=== PATIENT | female | born 1995 | race Caucasian/White ===

== ENCOUNTER 2024-04-11 20:19 | Emergency (ER) | payer BC, MEDICAID, SELFPAY ==
--- NOTE | ~2024-04-11 | CT_ITS ---
CLINICAL INDICATION: Nausea vomiting and diarrhea with abdominal pain COMPARISON: None. TECHNIQUE: Multiple contiguous axial images of the abdomen and pelvis were performed following the ad ministration of with 100 mL Omnipaque-350 intravenous contrast The dose-length product (DLP) was 1836.12 mGy-cm. Automated exposure control and iterative reconstruction technique were employed. FINDINGS/OBSERVATIONS: Visualized lower thorax: The bilateral lung bases are clear. The heart is of normal size, without pericardial effusion. Small hiatal hernia is present. Liver: The liver enhances homogeneously and is not enlarged measuring 18 cm in longitudinal dimension. Gallbladder and biliary system: The gallbladder is surgically absent. Pancreas: The pancreas enhances homogeneously without ductal dilatation. Spleen: The spleen enhances homogeneously and is not enlarged measuring 11 cm in longitudinal dimension. Kidneys: The bilateral kidneys enhance symmetrically without hydronephrosis or renal calculi. Adrenal glands: Unremarkable. Gastrointestinal tract: Multiple loops of nondilated fluid-filled small and large bowel, consistent w ith patient's history. Appendix: The air-filled appendix is of normal caliber (coronal series, images of the 53 through 69). Vasculature: Unremarkable. No aneurysmal dilatation or significant stenosis. Lymph nodes: No pathologically enlarged or morphologically suspicious lymph nodes within the retroperitoneum or at the root of the mesentery. Pelvic structures: The bladder is only minimally distended, and otherwise unremarkable. The uterus is anteverted and anteflexed, and otherwise unremarkable Body wall and musculoskeletal: Small fat-containing umbilical hernia. No significant degenerative disease within the lower thoracic or lumbosacral spine. IMPRESSION: No acute intra-abdominal pathology. Multiple loops of nondilated fluid-filled small bowel and large bowel, consistent with patient's hist ory. Normal appendix. Reviewed, dictated and finalized at location A. [facility] IMPRESSION: No acute intra-abdominal pathology. Multiple loops of nondilated fluid-filled small bowel and large bowel, consiste nt with patient's history. Normal appendix.
[2024-04-11 20:31] VITALS: BP 153/101; PULSE 108; RESP 18; TEMP 36.9; O2SAT 100
[2024-04-11 20:53] LABS: Basophils Percent Auto 0.2 % (0.2-1.2); Eosinophils Absolute Auto 0.2 K/mm3 (0-0.3); Eosinophils Percent Auto 1.6 % (0-4.4); Hematocrit 46.1 % (37.0-47.0); Hemoglobin 15.8 g/dL (12.0-15.0); Immature Granulocyte Absolute 0.05 K/mm3 (0.00-0.031); Immature Granulocyte Percent A 0.4 % (0-0.5); Lymphocytes Absolute Auto 0.53 K/mm3 (0.9-3.2); Lymphocytes Percent Auto 4.1 % (18.3-44.2); Mean Corpuscular HGB Conc 34.3 g/dl (32-36); Mean Corpuscular Volume 84.7 fl (80-100); Mean Platelet Volume 10.2 fl (7.4-10.4); Monocytes Absolute Auto 0.4 K/mm3 (0.1-0.6); Monocytes Percent Auto 2.8 % (2.6-8.5); Neutrophils Absolute Auto 11.6 K/mm3 (1.3-6.7); Neutrophils Percent Auto 90.9 % (45.5-73.1); Platelet Count Result 318 k/mm3 (150-375); Red Blood Count 5.44 M/mm3 (4.2-5.4); Red Cell Distribution Width 12.9 % (11.5-14.5); White Blood Count 12.8 K/mm3 (4.5-10.0)
[2024-04-11 21:05] LABS: Add Urine Microscopic? YES; Appearance Urine Cloudy (Clear); Bacteria Urine 1+ /hpf; Bilirubin Urine Negative (Negative); Blood Urine 3+ (Negative); Color Urine Yellow (Yellow); Glucose Urine UA Negative (Negative); Ketones Urine Trace mg/dL (Negative); Leukocyte Esterase Ur Trace LEU/UL (Negative); Nitrate Urine Negative (Negative); Non Pathogenic Casts 0-2; Protein Urine 1+ mg/dL (Negative); Specific Grav Ur 1.025 (1.001-1.035); Squamous Epithelial Cell Urine Few /hpf (Few); Urobilinogen Urine 0.2 mg/dL (<2.0)
[2024-04-11 21:05] LABS: Alanine Aminotransferase 24 U/L (6-35); Albumin Level 4.4 g/dL (3.5-5.1); Alkaline Phosphatase 74 U/L (38-126); Anion Gap 13 mmol/L (4-12); Aspartate Amino Transferase 23 U/L (14-36); Bilirubin,Total 0.9 mg/dL (0.2-1.3); Blood Urea Nitrogen 13 mg/dL (7-17); Calcium 8.6 mg/dL (8.4-10.2); Carbon Dioxide 24 mmol/L (22-30); Chloride 102 mmol/L (98-107); Estimated CRCL calculation 143 ml/min; Estimated Glomerular Filt Rate > 60; Glucose 106 mg/dL (65-110); Lipase 59 U/L (23-300); Magnesium 1.9 mg/dL (1.6-2.3); Potassium 4.2 mmol/L (3.4-5.0); Sodium 139 mmol/L (137-145)
[2024-04-11 21:20] LABS: BEDSIDEPREGUCG Negative (Negative)
[2024-04-11 21:25] LABS: SPREG INTERNAL CONTROL Positive; Serum Qual hCG Negative
[2024-04-11 21:30] LABS: Influenza A QL RT-PCR Negative (Negative); Influenza B QL RT-PCR Negative (Negative); RSV RNA, RT-PCR Negative (Negative); SARS-CoV-2 RNA PCR Negative (Negative)
[2024-04-11 21:59] VITALS: BP 133/82; PULSE 115; RESP 16; TEMP 36.5; O2SAT 97
--- NOTE | 2024-04-11 22:06 | ED.GENADULT ---
HPI - General Adult General Chief complaint: Abdominal Pain Stated complaint: nausea, vomiting, diarrhea abd pain Time Seen by Provider: 04/11/24 21:57 Source: patient Mode of arrival: ambulatory Limitations: no limitations History of Present Illness HPI narrative: This is a 28-year-old female who presents to the ED for chief complaint of N/V/D and abdominal pain this started this afternoon around 2:00 p.m.. Reports somewhere between 5-10 episodes of vomiting and a couple episodes of diarrhea. States that she is unable to keep anything down to the nausea. Reports intense abdominal pain across the entire abdomen. Described as a contraction or cramping. Reports surgical history of cholecystectomy. Related Data Allergies Allergy/AdvReac Type Severity Reaction Status Date / Time codeine Allergy Unknown Other Verified 04/11/24 20:21 amoxicillin AdvReac Mild Nausea Verified 04/11/24 20:21 Review of Systems Review of Systems: All systems as dictated in HPI Exam Narrative: GENERAL: Well-appearing, well-nourished, and in no acute distress. HEAD: Normocephalic, atraumatic. EYES: PERRLA and EOMI. ENT: Nares clear, no rhinorrhea or epistaxis. Mucous membranes moist. Oropharynx without tonsillar hypertrophy exudate or other lesions. NECK: Supple. No adenopathy or masses. CHEST: No respiratory distress. Clear to auscultation. No wheezes rales or rhonchi HEART: Regular rate and rhythm. No murmur heard. Normal peripheral pulses. ABDOMEN: Soft, nontender, nondistended, normal active bowel sounds. MSK: Normal range of motion. No edema. SKIN: Warm, dry, no rash. NEURO: Alert and oriented x4. No focal deficits. PSYCH: Normal mood and affect. Course Vital Signs Vital signs: Vital Signs Temperature 98.4 F 04/11/24 20:31 Pulse Rate 108 H 04/11/24 20:31 Respiratory Rate 18 04/11/24 20:31 Blood Pressure 153/101 H 04/11/24 20:31 Pulse Oximetry 100 04/11/24 20:31 Temperature 97.7 F 04/11/24 21:59 Pulse Rate 110 H 04/12/24 00:25 Respiratory Rate 18 04/12/24 00:25 Blood Pressure 163/9 H 04/12/24 00:25 Pulse Oximetry 97 04/12/24 00:25 Medical Decision Making MDM Narrative Medical decision making narrative: This is a 28-year-old female who presents to the ED for chief complaint of N/V/D. Vitals show mildly elevated heart rate and mildly elevated blood pressure. Exam is benign overall. No evidence of acute abdomen. Lab work shows mildly elevated white count of 12.8. She appears to be hemoconcentrated on lab work indicating dehydration. CMP unremarkable. Urinalysis shows trace leuks, 6-10 whites, culture is pending. Viral swabs negative. CT abdomen pelvis with IV contrast: IMPRESSION: No acute intra-abdominal pathology. Multiple loops of nondilated fluid-filled small bowel and large bowel, consistent with patient's history. Normal appendix. Presentation consistent with viral gastroenteritis. She did have improvement with fluids, Toradol, Zofran here. Patient will be discharged in stable condition. Supportive measures discussed and return precautions given. Patient is understanding and agreeable with plan for discharge with PCP follow-up. Vital Signs Vital Signs: Vital Signs Temperature 98.4 F 04/11/24 20:31 Pulse Rate 108 H 04/11/24 20:31 Respiratory Rate 18 04/11/24 20:31 Blood Pressure 153/101 H 04/11/24 20:31 Pulse Oximetry 100 04/11/24 20:31 Temperature 97.7 F 04/11/24 21:59 Pulse Rate 110 H 04/12/24 00:25 Respiratory Rate 18 04/12/24 00:25 Blood Pressure 163/9 H 04/12/24 00:25 Pulse Oximetry 97 04/12/24 00:25 Lab Data 04/11/24 20:44 04/11/24 20:44 Labs: Lab Results 04/11/24 04/11/24 04/11/24 Range/Units 20:44 20:53 21:18 WBC 12.8 H (4.5-10.0) K/mm3 RBC 5.44 H (4.2-5.4) M/mm3 Hgb 15.8 H (12.0-15.0) g/dL Hct 46.1 (37.0-47.0) % MCV 84.7 (80-100) fl MCH 29.0 (26-34) pg MCHC 34.3 (32-36) g/dl RDW 12.9 (11.5-14.5) % Plt Count 318 (150-375) k/mm3 MPV 10.2 (7.4-10.4) fl Immature Gran % (Auto) 0.4 (0-0.5) % Neut % (Auto) 90.9 H (45.5-73.1) % Lymph % (Auto) 4.1 L (18.3-44.2) % [place] % (Auto) 2.8 (2.6-8.5) % Eos % (Auto) 1.6 (0-4.4) % Baso % (Auto) 0.2 (0.2-1.2) % Lymph # (Auto) 0.53 L (0.9-3.2) K/mm3 [place] # (Auto) 0.4 (0.1-0.6) K/mm3 Eos # (Auto) 0.2 (0-0.3) K/mm3 Baso # (Auto) 0.0 (0.0-0.1) K/mm3 Abs Immat Gran (auto) 0.05 H (0.00-0.031) K/mm3 Absolute Neuts (auto) 11.6 H (1.3-6.7) K/mm3 Absolute Nucleated RBC 0.000 (0.0-0.012) K/mm3 Nucleated RBC % 0.0 (0.0-0.2) % Sodium 139 (137-145) mmol/L Potassium 4.2 (3.4-5.0) mmol/L Chloride 102 (98-107) mmol/L Carbon Dioxide 24 (22-30) mmol/L Anion Gap 13 H (4-12) mmol/L BUN 13 (7-17) mg/dL Creatinine 0.71 (0.7-1.0) mg/dL Estim Creat Clear Calc 143 ml/min Estimated GFR > 60 (59 - ) Glucose 106 (65-110) mg/dL Calcium 8.6 (8.4-10.2) mg/dL Magnesium 1.9 (1.6-2.3) mg/dL Total Bilirubin 0.9 (0.2-1.3) mg/dL AST 23 (14-36) U/L ALT 24 (6-35) U/L Alkaline Phosphatase 74 (38-126) U/L Total Protein 8.0 (6.3-8.2) g/dL Albumin 4.4 (3.5-5.1) g/dL Lipase 59 (23-300) U/L Serum HCG, Qual Negative Urine Color Yellow (Yellow) Urine Appearance Cloudy H (Clear) Urine pH 5.0 (5.0-9.0) Ur Specific [place] 1.025 (1.001-1.035) Urine Protein 1+ H (Negative) mg/dL Urine Glucose (UA) Negative (Negative) mg/dL Urine Ketones Trace H (Negative) mg/dL Ur Blood (Man) 3+ H (Negative) Urine Nitrate Negative (Negative) Urine Bilirubin Negative (Negative) Urine Urobilinogen 0.2 (<2.0) mg/dL Leukocyte Esterase Rfl Trace H (Negative) CLAY/UL Urine RBC 6-10 H (0-2) /hpf Urine WBC 6-10 H (0-3) /hpf Ur Squamous Epith Cells Few (Few) /hpf Urine Bacteria 1+ H /hpf Urine Casts 0-2 POC Urine HCG, Qual Negative (Negative) Influenza A (RT-PCR) Negative (Negative) Influenza B (RT-PCR) Negative (Negative) RSV (RT-PCR) Negative (Negative) SARS-CoV-2 RNA (RT-PCR) Negative (Negative) Discharge Plan Discharge Clinical Impression: Gastroenteritis, Abnormal finding on urinalysis Patient Disposition: Home, Self-Care Condition: Stable Instructions: Antibiotic Form Additional Instructions: Your exam and imaging today are reassuring overall. There is evidence of slight dehydration due to a viral gastroenteritis. Dim should self resolve over the next several days. Make sure that you are staying well hydrated. Use Zofran at home for nausea. If you have any new or worsening symptoms please return to the ER for further evaluation. Patient Language: Telugu Prescriptions: New ondansetron 4 mg tablet,disintegrating 4 mg PO Q8H PRN (Reason: nausea and vomiting) Qty: 10 0RF cephalexin 500 mg tablet 500 mg PO Q8H 7 Days Qty: 21 0RF Follow-up/Referrals: Anita,Koby Petersen MD [Primary Care Provider] - Time of Disposition: 00:07
[2024-04-11] MEDS: SODIUM CHLORIDE 0.9% IV 1,000 ML 999 ML IV CONT ×2 (22:24→23:45)
[2024-04-11] MEDS: KETOROLAC 15 MG/ML VIAL (*BKC) IV PUSH (23:45)
[2024-04-11] MEDS: ONDANSETRON INJ 4 MG/2 ML VIAL IV PUSH (23:45)
[2024-04-12 00:25] VITALS: BP 163/9; PULSE 110; RESP 18; O2SAT 97
== END 2024-04-12 00:25 | disposition home or self-care (01) ==
PROVIDERS: Emergency Medicine; Emergency Provider Physician Assistant; PCP Internal Medicine
DX: K52.9 Noninfective gastroenteritis and colitis, unspecified (principal); R82.998 Other abnormal findings in urine; Z20.822 Contact with and (suspected) exposure to COVID-19; Z90.49 Acquired absence of other specified parts of digestive tract
CPT/HCPCS: 36415; 74177; 80053; 81001; 81025; 83690; 83735; 84703; 85025; 87086; 87637; 96361; 96374; 96375; 99284; J1885; J2405; J7030; Q9967

== ENCOUNTER 2024-07-18 10:47 | Outpatient (CLI) | payer BC, MEDICAID, SELFPAY ==
--- NOTE | ~2024-07-18 | XR_ITS ---
EXAM: XR foot LT min 3V DATE: 07/18/2024 11:27 HISTORY: pain in lt foot s/p injury . COMPARISON: None available. FINDINGS: Normal mineralization. There is metatarsal base avulsion fracture, with 3 mm distraction a nd 2 mm lateral displacement, smooth, sclerotic margins as can be seen with chronic fracture. No acut e fracture or dislocation. No lytic or blastic lesion. Joint spaces are maintained. No erosion or per iosteal change. Soft tissues within normal limits. IMPRESSION: Chronic appearing, mildly distracted and displaced fifth metatarsal base avulsion fractur e. Reviewed, dictated and finalized at location K. IMPRESSION: Chronic appearing, mildly distracted and displaced fifth metatarsal base avulsion fracture.
--- NOTE | ~2024-07-18 | XR_ITS ---
EXAM: XR lumbar spine 2-3V DATE: 07/18/2024 11:26 HISTORY: LOW BACK PAIN . COMPARISON: None available. FINDINGS: 5 nonrib-bearing lumbar-type vertebral bodies. Pedicles intact. Normal vertebral body alig nment. Vertebral body heights preserved. Mild disc space narrowing at L2-3 through L4-5. Mild lower l umbar facet hypertrophy and sclerosis. No fracture or dislocation. IMPRESSION: Mild lower lumbar degenerative disc disease and facet arthropathy. Reviewed, dictated and finalized at location K.
--- OUTSIDE RECORDS SUMMARY | 2024-07-18 12:56 | XMS_ITS | Patient Health Record ---
Author Organization [facility] Address [address] [place] [address] Care Team Providers Care Jet Piercer Operator Name Role Phone Olga Lidia Wong Primary Care Provider [phone] Darío Nevarez Unavailable [phone] Allergies Allergen (clinical drug ingredient) Drug/Non Drug Allergy documented on EMR Reaction Allergy Type Onset Date Status codeine Codeine hives Drug Allergy Active Reason For Referral Reason PHQ-9 20; warm hand off for f/u per protocol. Client is not suicidal and is low risk at this point. Diagnosis 1 PMDD (premenstrual d ysphoric disorder) (F32.81) Diagnosis 2 Concentration defici t (R41.840) Referral Organization [facility] Referring Provider First Name Darío Referring Provider Last Name Roque Referring Provider Speciality Psychiatry Referred Provider Specialty Behavioral [facility] Clinical Notes Radha Castillo 08/11 09:53:36 AM >Attempt to contact Consumer. Unable to reach Consumer at this time.Pete Ryen G 08/18/2023 12:51:30 PM > Client was unable to be reached, left a voicemail., Divine Bennett 08/26/2023 02:01:00 PM >[facility] PW attempted to contact consumer regarding referral. VM left requesting a return call.Donald Paulean 08/28/2023 09:46:21 AM >Letter mailed to consumer.Donald Paulean 09/11/2023 11:40:33 AM >No response from consumer; case closed. Referral Priority Routine Reason Interested in therap y and would like information. Diagnosis 1 PMDD (premenstrual d ysphoric disorder) (F32.81) Diagnosis 2 Anxiety (F41.9) Referral Organization [facility] Referring Provider First Name Darío Referring Provider Last Name Roque Referring Provider Speciality Psychiatry Referred Provider Specialty Behavioral [facility] Clinical Notes Kanchan Cook 025 03:03:59 PM > CHN called client, no answer. CHN left a voicemail for client to call back to discuss referral., Kanchan Cook 05/13/2024 10:16:19 AM > CHN called client and was sent to voicemail. CHN left message for client to call back to discuss referral., Joyce Kanchan 05/16/2024 02:39:16 PM > CHN called client and was sent to voicemail. CHN left a voicemail for client to call and discuss referral., Kanchan Cook 05/17/2024 01:24:43 PM > CHN sent client a letter with information to call CHN if they wanted to discuss referral. Referral Priority Routine Medications Medication SIG (Take, Route, Frequency, Duration) Notes Start Date End Date Status Atomoxetine HCl 40 MG 1 capsule in the morning Orally Once a day for 30 days 10/05/2023 Not-Taking Norethindrone Acetate 5 MG 1 tablet Orally Once a day Active Pantoprazole Sodium 40 MG 1 tablet Orally Once a day Active Dicyclomine HCl 10 MG 1 capsule Orally prn Active LORazepam 1 MG 1 tablet Orally Once a day as needed for panic attacks/extreme anxiety for 30 days Please remind client to schedule f/u. 07/15/2024 Active Gabapentin 100 MG 1 - 2 capsules Orally Once a day for 30 days Active Social History Tobacco Use: Social History Observation Description Date Details (start date - stop date) Never Smoker NA - NA Tobacco Control (Standard) Question Answer Notes Additional Findings: Tobacco non-user Ne neo chewed tobacco,Never used moist powdered tobacco Tobacco use: Nonsmoker Problems Problem Type SNOMED Code ICD Code Onset Dates Problem Status W/U Status Risk Notes Problem Anxiety (65865010) Anxiety (F41.9) Active confirmed Problem Poor concentration (finding) (23276244) Concentration deficit (R41.840) Active confirmed Problem Premenstrual tension syndrome (34831238) PMDD (premenstrual dysphoric disorder) (F32.81) Active confirmed Problem Restless legs (52438628) Restless leg (G25.81) Active confirmed Encounters Encounter Location Date Provider Diagnosis [address] [address] 2023 Darío Nevarez PMDD (premenstrual dysphoric disorder) F32.81 and Concentration deficit R41.[address] [address] 09/07/2023 Darío Nevarez PMDD (premenstrual dysphoric disorder) F32.81 and Concentration deficit R41.[address] [address] 10/05/2023 Darío Nevarez PMDD (premenstrual dysphoric disorder) F32.81 ; Concentration deficit R41.840 and Restless leg G25.[address] [address] 05/09/2024 Darío Nevarez PMDD (premenstrual dysphoric disorder) F32.81 ; Anxiety F41.9 ; Concentration deficit R41.840 and Restless leg G25.[address] [address] 08/03/2023 Olga Lidia Wong [address] [address] 2023 Darío Nevarez PMDD (premenstrual dysphoric disorder) F32.[address] [address] 09/21/2023 Darío Nevarez Assessments Encounter Date Diagnosis (ICD Code) Assessment Notes Treatment Notes Treatment Clinical Notes Section Notes 2023 Concentration deficit (ICD-10 - R41.840) Client assessed carefully for ADHD and bipolar disorder after requesting ADHD screening due to symptoms of concentration deficits. While screening did reveal current topics of deficit, falls short of ADHD diagnosis. Historical information also appears to be incongruent with ADHD dx and while this can often be faulty due to memory client is not far removed from school years and is good historian. Client has 3 children all under age of 4, one is autistic with high needs, and client appears overwhelmed. Is having increased symptoms around one week prior to menstration (increased irritability, increased forgetfulness, lack of goal accomplishment). Discussed PMDD as possible dx and starting treatment in this aspect with fluoxetine. She is also starting progesterone soon per her OBGYN. Client is agreeable to this and use of hydroxyzine for tx of anxiety/insomnia prn usage. If this tx not helpful would consider Strattera or Qelbree for tx of concentration deficit as secondary option. 2023 PMDD (premenstrual dysphoric disorder) (ICD-10 - F32.81) Client assessed carefully for ADHD and bipolar disorder after requesting ADHD screening due to symptoms of concentration deficits. While screening did reveal current topics of deficit, falls short of ADHD diagnosis. Historical information also appears to be incongruent with ADHD dx and while this can often be faulty due to memory client is not far removed from school years and is good historian. Client has 3 children all under age of 4, one is autistic with high needs, and client appears overwhelmed. Is having increased symptoms around one week prior to menstration (increased irritability, increased forgetfulness, lack of goal accomplishment). Discussed PMDD as possible dx and starting treatment in this aspect with fluoxetine. She is also starting progesterone soon per her OBGYN. Client is agreeable to this and use of hydroxyzine for tx of anxiety/insomnia prn usage. If this tx not helpful would consider Strattera or Qelbree for tx of concentration deficit as secondary option. 2023 PMDD (premenstrual dysphoric disorder) (ICD-10 - F32.81) 09/07/2023 PMDD (premenstrual dysphoric disorder) (ICD-10 - F32.81) Client with much improvement in symptoms with fluoxetine though not with hydroxyzine. Hydroxyzine discontinued and fluoxetine continued at same dosage. Client c/o consistent fatigue despite good and adequate sleep and resolved depression. Hx of anemia during and family hx of anemia (mother has). Heavy periods (this is why progesterone was ordered). Discussed starting MVI with iron. Not currently taking MVI. Also discussed client to discuss this fatigue with her OBGYN at her next apt given her heavy periods. If continues would consider ordering CBC in near future. Client is agreeable to this treatment plan. 10/05/2023 Concentration deficit (ICD-10 - R41.840) Client requests medication for her concentration and anxiety. Discussed different treatment options. Client open to trial of Strattera and gabapentin. Sent into pharmacy. 10/05/2023 PMDD (premenstrual dysphoric disorder) (ICD-10 - F32.81) Client requests medication for her concentration and anxiety. Discussed different treatment options. Client open to trial of Strattera and gabapentin. Sent into pharmacy. 05/09/2024 Anxiety (ICD-10 - F41.9) Client's depression resolved with hormonal tx from OBGYN. C/o anxiety, not every day, but to point of hands shaking when occurring. States has used lorazepam in past with success. Discussed the dangers of use of benzodiazepines senior living for anxiety control and that if client finds current amount not sufficient to help with anxiety a longer acting, non benzo medication will need to be used instead. She is agreeable to this plan. She is also interested in therapy and how to engage with therapy at [facility] discussed and referral sent. 05/09/2024 PMDD (premenstrual dysphoric disorder) (ICD-10 - F32.81) Client's depression resolved with hormonal tx from OBGYN. C/o anxiety, not every day, but to point of hands shaking when occurring. [facility] has used lorazepam in past with success. Discussed the dangers of use of benzodiazepines oysterman for anxiety control and that if client finds current amount not sufficient to help with anxiety a longer acting, non benzo medication will need to be used instead. She is agreeable to this plan. She is also interested in therapy and how to engage with therapy at [facility] discussed and referral sent. 05/09/2024 Concentration deficit (ICD-10 - R41.840) Client's depression resolved with hormonal tx from OBGYN. C/o anxiety, not every day, but to point of hands shaking when occurring. [facility] has used lorazepam in past with success. Discussed the dangers of use of benzodiazepines senior living for anxiety control and that if client finds current amount not sufficient to help with anxiety a longer acting, non benzo medication will need to be used instead. She is agreeable to this plan. She is also interested in therapy and how to engage with therapy at [facility] discussed and referral sent. 10/05/2023 Restless leg (ICD-10 - G25.81) Client requests medication for her concentration and anxiety. Discussed different treatment options. Client open to trial of Strattera and gabapentin. Sent into pharmacy. 09/07/2023 Concentration deficit (ICD-10 - R41.840) Client with much improvement in symptoms with fluoxetine though not with hydroxyzine. Hydroxyzine discontinued and fluoxetine continued at same dosage. Client c/o consistent fatigue despite good and adequate sleep and resolved depression. Hx of anemia during and family hx of anemia (mother has). Heavy periods (this is why progesterone was ordered). Discussed starting MVI with iron. Not currently taking MVI. Also discussed client to discuss this fatigue with her OBGYN at her next apt given her heavy periods. If continues would consider ordering CBC in near future. Client is agreeable to this treatment plan. 05/09/2024 Restless leg (ICD-10 - G25.81) Client's depression resolved with hormonal tx from OBGYN. C/o anxiety, not every day, but to point of hands shaking when occurring. States has used lorazepam in past with success. Discussed the dangers of use of benzodiazepines oysterman for anxiety control and that if client finds current amount not sufficient to help with anxiety a longer acting, non benzo medication will need to be used instead. She is agreeable to this plan. She is also interested in therapy and how to engage with therapy at [facility] discussed and referral sent. 2023 Other Discussed sleep hygiene and caffeine intake with encouragement to limit electronic devices an hour before bed and to limit caffeine after 3:00pm. Exercise benefits for mood and health discussed. Psychoeducation regarding psychiatric illness provided. Client was educated about risks and benefits of medication, alternatives to medication, off label uses of medication, suicidal ideation with SSRIs, self-administrati on and compliance with medication along with how to safely store medication. Verbal informed consent obtained. Client agrees to return sooner if symptoms worsen or if suicidal or homicidal ideations occur. Client has the phone number to the 24-hour crisis line at [facility]. Questions addressed. Client verbalized understanding of all information and is agreeable to treatment plan. Client assessed carefully for ADHD and bipolar disorder after requesting ADHD screening due to symptoms of concentration deficits. While screening did reveal current topics of deficit, falls short of ADHD diagnosis. Historical information also appears to be incongruent with ADHD dx and while this can often be faulty due to memory client is not far removed from school years and is good historian. Client has 3 children all under age of 4, one is autistic with high needs, and client appears overwhelmed. Is having increased symptoms around one week prior to menstration (increased irritability, increased forgetfulness, lack of goal accomplishment). Discussed PMDD as possible dx and starting treatment in this aspect with fluoxetine. She is also starting progesterone soon per her OBGYN. Client is agreeable to this and use of hydroxyzine for tx of anxiety/insomnia prn usage. If this tx not helpful would consider Strattera or Qelbree for tx of concentration deficit as secondary option. 09/07/2023 Other Discussed sleep hygiene and caffeine intake with encouragement to limit electronic devices an hour before bed and to limit caffeine after 3:00pm. Exercise benefits for mood and health discussed. Psychoeducation regarding psychiatric illness provided. Client was educated about risks and benefits of medication, alternatives to medication, off label uses of medication, suicidal ideation with SSRIs, self-administrati on and compliance with medication along with how to safely store medication. Verbal informed consent obtained. Client agrees to return sooner if symptoms worsen or if suicidal or homicidal ideations occur. Client has the phone number to the 24-hour crisis line at [facility]. Questions addressed. Client verbalized understanding of all information and is agreeable to treatment plan. Client with much improvement in symptoms with fluoxetine though not with hydroxyzine. Hydroxyzine discontinued and fluoxetine continued at same dosage. Client c/o consistent fatigue despite good and adequate sleep and resolved depression. Hx of anemia during and family hx of anemia (mother has). Heavy periods (this is why progesterone was ordered). Discussed starting MVI with iron. Not currently taking MVI. Also discussed client to discuss this fatigue with her OBGYN at her next apt given her heavy periods. If continues would consider ordering CBC in near future. Client is agreeable to this treatment plan. 10/05/2023 Other Discussed sleep hygiene and caffeine intake with encouragement to limit electronic devices an hour before bed and to limit caffeine after 3:00pm. Exercise benefits for mood and health discussed. Psychoeducation regarding psychiatric illness provided. Client was educated about risks and benefits of medication, alternatives to medication, off label uses of medication, suicidal ideation with SSRIs, self-administrati on and compliance with medication along with how to safely store medication. Verbal informed consent obtained. Client agrees to return sooner if symptoms worsen or if suicidal or homicidal ideations occur. Client has the phone number to the 24-hour crisis line at [facility]. Questions addressed. Client verbalized understanding of all information and is agreeable to treatment plan. Client requests medication for her concentration and anxiety. Discussed different treatment options. Client open to trial of Strattera and gabapentin. Sent into pharmacy. 05/09/2024 [place]. Discussed sleep hygiene and caffeine intake with encouragement to limit electronic devices an hour before bed and to limit caffeine after 3:00pm. Exercise benefits for mood and health discussed. Psychoeducation regarding psychiatric illness provided. Client was educated about risks and benefits of medication, alternatives to medication, off label uses of medication, suicidal ideation with SSRIs, self-administrati on and compliance with medication along with how to safely store medication. Verbal informed consent obtained. Client agrees to return sooner if symptoms worsen or if suicidal or homicidal ideations occur. Client has the phone number to the 24-hour crisis line at [facility]. Questions addressed. Client verbalized understanding of all information and is agreeable to treatment plan. Client's depression resolved with hormonal tx from OBGYN. C/o anxiety, not every day, but to point of hands shaking when occurring. States has used lorazepam in past with success. Discussed the dangers of use of benzodiazepines oysterman for anxiety control and that if client finds current amount not sufficient to help with anxiety a longer acting, non benzo medication will need to be used instead. She is agreeable to this plan. She is also interested in therapy and how to engage with therapy at [facility] discussed and referral sent. Plan Of Treatment No Information Insurance Providers Payer Name Payer Address Payer Phone Subscriber Number Group Number Insured Name Patient Relationship to Insured Coverage Start Date Coverage End Date [facility] [address] [place] [address] [id number] Dulce Chilel Self - patient is the insured 4 Medical (General) History Medical History History ICD Code depression anxiety Surgical History Surgery Date(Month/Year) section 2019 cholecystectomy 2021 tubal ligation 2022 Hospitalization History Reason Date(Month/Year) childbirth surgery
--- OUTSIDE RECORDS SUMMARY | 2024-07-18 12:56 | XMS_ITS | Referral Summary ---
Author Organization [facility] Address [address] [place] [address] Care Team Providers Care Bench Assembly Inspector Name Role Phone Koby Howard MD Primary Care Provider [phone] Allergies Active Allergy Reactions Criticality Noted Date Comments Codeine Hives Medium 05/19/2018 Medications dicyclomine (BENTYL) 10 mg capsule TAKE 1 CAPSULE BY MOUTH THREE TIMES DAILY NEEDED 07/27/[address] (PROTONIX) 40 mg EC tablet Take 1 tablet (40 mg total) by mouth as needed 07/28/2023 Active norethindrone (AYGESTIN) 5 mg tablet Take 1 tablet (5 mg total) by mouth daily 30 tablet 11 08/10/2023 Active Active Problems Problem Noted Date Diagnosed Date Abnormal uterine bleeding 08/10/2023 PMDD (premenstrual dysphoric disorder) 4 Major depressive disorder, r ecurrent episode, in full remission 01/21/2022 Morbid obesity 01/16/2022 Acute nonintractable headache Resolved Problems Problem Noted Date Diagnosed Date Resolved Date Encounter for female sterilization procedure 3 08/10/2023 Encounter for induction of labor 12/15/2022 08/10/2023 Overview (12/15/2022): Dulce Gisela Chilel is a 27 y.o. female at 38w4d who is dated by L=1 and is being admitted for an induction of labor secondary to chronic hypertension Admit to L&D: Consents signed and placed in chart. Labs: CBC and T&S pending. Induction of labor with chepe whelan . FWB: Continuous monitoring. tracing category II, reassured by moderate variability, +accels . ID: 3rd trimester HIV (>28 wga) negative on 12/01. GBS negative on 12/01 . RPR on admission: pending. Membrane Status: intact. Indications for UDS: none. Verbal consent obtained for UDS: Not indicated. MOF: Plans to formula feed. Urine drug screen not indicated. Patient informed of results: N/A. MOC: Desires interval tubal. Will discuss bridge. Pain management: Desires epidural. Post DVT prophylaxis: The patient has the following MAJOR risk factors BMI >/= 40 and the following MINOR risk factors parity >/=3. enoxaparin 40 mg daily will be ordered for VTE prophylaxis . #Hx of CS x1: For arrest of dilation. Successful in G2. #Anxiety/depression: On zoloft. For SW c/s PP. #LGA: EFW 94% with AC <99%. For shoulder dystocia counseling on admission. #Obesity: BMI 53 #cHTN: On no meds. BP MR on admission. UPC pending. Hx preE in G1. care following vaginal delivery 12/15/2022 08/10/2023 Overview (12/17/2022): # ID: Afebrile. No signs/symptoms of infection. # Heme: EBL 250 mL. No symptoms acute blood loss anemia. # CV/Pulm: Chronic hypertension - Blood pressures well controlled on no meds. Asymptomatic, denies PUENTE/RUQ pain/vision changes. CBC/CMP WNL, UPC 0.097. Enrolled in home BP monitoring. # GI/: Tolerating PO. Voiding spontaneously. # Pain: Controlled with above regimen. #Anxiety and Depression: on sertraline 100mg, continued on admission. Pt reports that mood has been stable on current dose. Social work consult completed. #Hypothyroidism: on no meds pre-. 06/2022 TSH 0.93. For TSH at PP visit. # MOC: Desires interval BTL, consents signed 10/20/2022. Declines bridge interval. # MOF: Formula feeding. Urine drug screen not indicated. Patient informed of results: N/A. # Post DVT prophylaxis: The patient has the following MAJOR risk factors BMI >/= 40 and the following MINOR risk factors parity >/=3. enoxaparin 40 mg BID ordered for VTE prophylaxis. # Disposition: Follow up to be scheduled with primary OB. To be tasked for interval BTL. Desires discharge home today. Supervision of other normal , antepartum 05/19/2022 08/10/2023 Overview (12/08/2022): -anxiety/depression-zoloft -cHTN, no meds -38-39wk IOL -C/S x1 IN G1, successful G2 -BMI>50, see problem list below -serial growth US @ 28wks -weekly NSTs @ 34wks -LGA 95% @ 32wks -normal pap at NOB -needs rpr with 36wk labs -desires tubal, papers signed 10/20 and scanned into media--for interval tubal unless C/S -IOL sched 12/15/22 @ 0830, pt aware [x] Initial BMI: 53.21 [x] Labs: Labs: Lab Results Component Value Date ABORH O Positive 06/23/2022 IDCOOMB Negative 06/23/2022 [id number] Nonreactive 06/23/2022 LABRPR Nonreactive 06/23/2022 RUBELIGG Reactive 05/02/2020 HEPBSAG Nonreactive 06/23/2022 GBS neg 10/27/2019 [x] Genetic Screening: Desires flk and negative carrier screening-->could not do flk, nml cfdna completed [x] Baby ASA: yes @ 12wks [x] 1hr GCT at 24-28wks: nml, 102 [x] Tdap (27-36wks):11/04/2022 ck [x] Flu Shot:declines 12/08/22 [x] COVID vaccine: declines [] Rhogam (if Rh neg): n/a O+ [x] GBS at 36 wks: negative [x] : FORMULA FEEDING [x] control method: ppBTL [x] 39 weeks discussion of IOL vs. Expectant management: 38wk IOL [x] Mode of delivery: anticipate [] For C/S bottle of CHG 4% and hand out provided @ 36wks Girl, formula feeding, [facility] Teaching: [x] 1st visit [x] 28-30 week [x] 36 week Initial BMI >50 (gestational weight goal <15lbs) 1st visit: [] Early HgbA1c and TSH [] Order specialized anatomy for 20-22wks [] 1mg folic acid and ASA @ 12wks [] JAYMIE eval (referral if indicated) [] Nutritional Consult Referral ([facility]) [] Discuss risks and limitations of cfDNA 3rd trimester/delivery: [] 28wk glucola [] Anesthesia Consult early 3rd tri [] Serial growth US (q4wks) @ 28wks [] Weekly NSTs @ 34wks [] 39 wk delivery recommended [] 3g Ancef @ delivery [] Discuss PP LMWH and Consideration of NPT wound dressing if : [] Nutrition/exercise counseling (dot phrase ACOGHEALTHYEATING and dot phrase ACOGEXERCISEAFTERPREGNANCY) Supervision of other normal , antepartum 03/29/2020 05/19/2022 Overview (11/12/2020): -Prior ltcs 10/2019 for AOD and LGA - early one hour 117 Unsure of delivery preferences wants to wait for growth US results--growth 11/05: 88% with AC at 98% -CHTN- pre-eclampsia in 2019 ; baseline labs completed 05/22 - Hx of anxiety and depression- on zoloft increased to 100mg daily 05/30; [facility] referral in -[place] only -[place] Serial growths ordered, last 10/17: 91%-->growth 11/05: 88% with AC at 98% -Hx of headaches -mild anemia for daily feso4 -COVID+ 05/22/2020 -TOLAC sched 11/22/2020 @ 2200, pt aware , covid testing (pt will be 38.6, not starting IOL until 0000) [x] Labs: Labs: Lab Results Component Value Date ABORH O Positive 05/02/2020 IDCOOMB Negative 05/02/2020 [id number] Nonreactive 05/02/2020 LABRPR Nonreactive 05/02/2020 RUBELIGG Reactive 05/02/2020 HEPBSAG Nonreactive 05/02/2020 GBS neg 10/27/2019 [x] Genetic Screening: nml flk [x] Baby ASA: yes @ 12wks [x] 1hr GCT at 24-28wks: nml, 112 [x] Tdap (27-36wks):10/02/20 AH [] Flu Shot: declined 04/23/20 [] Rhogam (if Rh neg): n/a O+ [x] GBS at 36 wks: negative [x] : FORMULA feeding [x] control method: OCPs [x] 39 weeks discussion of IOL vs. Expectant management: 39wk IOL [x] Mode of delivery: anticipate [] For C/S bottle of CHG 4% and hand out provided @ 36wks Girl, formula feeding, [facility] peds Teaching: [x] 1st visit [x] 28-30 week [x] 36 week care following delivery 11/15/2019 03/29/2020 Overview (11/17/2019): # ID: Afebrile. No signs/symptoms of infection. #COVID-19: Preadmission testing negative # Heme: EBL 800 mL. No symptoms acute blood loss anemia. # CV/Pulm: Pre-eclampsia with severe features - s/p 24 hours magnesium sulfate. Blood pressures normotensive to mild range on no meds. Will consider ordering [id number] if continued mild range BPs today. CBC/CMP WNL, UPC 0.1. Consented for Remote BP Monitoring # GI/: Tolerating PO. Voiding spontaneously. # Depression: continue home zoloft # Pain: Controlled with above regimen. # Post DVT prophylaxis: The patient has the following MAJOR risk factors BMI >/= 40 and the following MINOR risk factors delivery and preeclampsia. enoxaparin 40 mg BID ordered for VTE prophylaxis. # MOC: COCs at 6 week visit # MOF: Formula feeding # Disposition: Continue routine postoperative care. Plan to remove wound vac on day of discharge. Normal labor 11/13/2019 11/19/2020 Overview (11/13/2019): 1. Induction of labor for unresolved PUENTE: Admit to L&D. Consents signed and placed in chart. Send CBC/T&S. Induction of labor with miso & Cook Catheter. 2. FWB: Continuous monitoring. Reactive NST 3. ID: HIV Negative, 3rd trimester sent today. GBS negative. Membrane Status: intact. 4. Indications for UDS: none 5. MOF: Plans to formula feed. 6. MOC: Plans to use COCs for contraception. 7. Pain management: Desires epidural when in pain. 8. Post DVT prophylaxis: The patient has the following MAJOR risk factors BMI >/= 40 and the following MINOR risk factors preeclampsia. SCDs will be ordered for VTE prophylaxis . 9. COVID Test Status: Rapid test sent on admission 10. LGA: 99th% on 10/26 11. Anxiety/Depression: on Zoloft 12. Unresolved PUENTE/Atypical PreE: plan for Mag Sulfate during labor Supervision of other normal , antepartum 04/01/2019 03/29/2020 Overview (11/10/2019): -Depression, anxiety (stopped wellbutrin and lorazepam w + UPT); On zoloft and requesting to increase to 50mg -CHTN- serial growth US 3rd trimester -LGA - 99% -Pt not interested in classes or . States that knowing about these things increases her anxiety. Would rather experience them as they come and desires to return to pre-preg anxiety meds OSWALDO post-delivery. -Needs HIV on labor -IOL 11/20/19 @ 1999, pt aware, covid testing ordered [x] Labs: 1st trimester completed [x] Genetic Screening: FLK [x] Baby ASA:n/a [x] 1hr GCT at 24-28wks: 145; 3hr 94, 131, 110, 83 [x] Tdap (27-36wks):09/28/19 JCook [x] Flu Shot: Declined [] Rhogam (if Rh neg): n/a, O+ [] GBS at 36 wks: Negative [x] : no plans to formula feed [x] control method:list provided [x] 39 weeks discussion of IOL vs. Expectant management: [x] Mode of delivery: vd BOY, formula feed : NEED PED Normal labor 05/26/2022 Overview (11/19/2020): 1. TOLAC: Admit to L&D. Consents signed and placed in chart. Send CBC/T&S. Expectant management of labor. 2. FWB: Continuous monitoring. Reactive NST 3. ID: HIV negative. GBS negative. Membrane Status: intact. 4. Indications for UDS: none. Verbal consent obtained for UDS: Not indicated 5. cHTN: History of cHTN w superimposed preeclampsia in G1. Baseline CBC/CMP wnl. Normotensive on admit, plan for repeat CBC/CMP on admit. 6. Anxiety/depression: continue Zoloft 7. MO: BMI 54 8. Anemia: CBC on admit 9. COVID recovered: positive on 05/22/20 10. MOF: Plans to breastfeed. 11. MOC: Plans to use OCPs for contraception. 12. Pain management: Desires epidural now. 13. Post DVT prophylaxis: The patient has the following MAJOR risk factors BMI >/= 40 and the following MINOR risk factors none. enoxaparin 40 mg BID will be ordered for VTE prophylaxis . 14. COVID Vaccine Status: Not assessed 15. COVID Test Status: Test sent on admission care following vaginal delivery 05/26/2022 Overview (11/22/2020): # ID: Afebrile. No signs/symptoms of infection. #COVID-19: COVID recovered (tested positive 05/22/20), admission testing negative. # Heme: EBL 500 mL. No symptoms acute blood loss anemia. #Iron deficiency anemia: Admit Hgb 11.5, patient can continue PO iron if desired. # CV/Pulm: Chronic hypertension - Blood pressures well controlled on no meds. Asymptomatic, denies PUENTE/RUQ pain/vision changes. Baseline and admit CBC/CMP wnl, 24 hr UP 135. Normotensive over the last 24 hrs. Declines home BP monitoring. #History of chronic HTN w/ superimposed preeclampsia in G1 # GI/: Tolerating PO. Voiding spontaneously. # Anxiety/depression: On Zoloft # Morbid obesity: BMI 54.58 # Pain: Controlled with above regimen. # Post DVT prophylaxis: The patient has the following MAJOR risk factors BMI >/= 40 and the following MINOR risk factors none. enoxaparin 40 mg daily ordered for VTE prophylaxis. # MOC: Condoms # MOF: Formula feeding # COVID Vaccination Status: Not previously received: I decline to share my reason for not getting the vaccine # Disposition: Follow up [facility]. Discharge home today. Immunizations Immunization Administration Dates Next Due DTaP 08/02/1998,1997,1997 Hep A, Pediatric 02/12/2010 Hep B / HiB 08/02/1998 Hep B, Adolescent or Pediatric 1997 HiB 1997,1997 IPV 08/02/1998,1997,1997 MMR 12/17/2022(Deferred: No longer n eeded) Meningococcal MCV4P (Menactra) 12/07/2014 Tdap 11/04/2022,10/02/2020,09/28/2019 Varicella 12/17/2022(Deferred: No longer n eeded) Social History Tobacco Use Types Packs/Day Years Used Date Smoking Tobacco: Never Smokeless Tobacco: Never Tobacco Cessation:Counseling Given: Not Answered Alcohol Use Standard Drinks/Week Comments No 0 (1 standard drink = 0.6 oz pur e alcohol) Social Connection and Isolat ion Panel [NHANES] Answer Date Recorded In a typical week, how many times do you talk on the phone with family, friends, or neighbors? More than three times a week 12/16/2022 How often do you get togethe r with friends or relatives? Three times a week 12/16/2022 How often do you attend chur ch or judaism services? Never 12/16/2022 Do you belong to any clubs o r organizations such as shinto groups, unions, fraternal or athletic groups, or school groups? No 12/16/2022 How often do you attend meet ings of the clubs or organizations you belong to? Never 12/16/2022 Are you , , di vorced, , never , or living with a partner? Living with partner 12/16/2022 AUDIT-C Answer Date Recorded Q1: How often do you have a drink containing alcohol? Never 02/04/2023 Q2: How many drinks containi ng alcohol do you have on a typical day when you are drinking? Patient does not drink 3 Q3: How often do you have si x or more drinks on one occasion? Never 02/04/2023 Overall Financial Resource Strain (CARDIA) Answe r Date Recorded How hard is it for you to pa y for the very basics like food, housing, medical care, and heating? Not hard at all 12/16/2022 Exercise Vital Sign Answer Date Recorde d On average, how many days pe r week do you engage in moderate to strenuous exercise (like a brisk walk)? 3 days 09/08/2019 On average, how many minutes do you engage in exercise at this level? 40 min 09/08/2019 Hunger Vital Sign Answer Date Recorded Within the past 12 months, y ou worried that your food would run out before you got the money to buy more. Never true 12/17/19 23 Within the past 12 months, t he food you bought just didn't last and you didn't have money to get more. Never true 12/16/2022 PRAPARE - Transportation Answer Date Re corded In the past 12 months, has l ack of transportation kept you from medical appointments or from getting medications? No 11/22 In the past 12 months, has l ack of transportation kept you from meetings, work, or from getting things needed for daily living? No 12/16/2022 Housing Stability Vital Sign Answer Anup e Recorded In the last 12 months, was t here a time when you were not able to pay the mortgage or rent on time? No 12/16/2022 In the last 12 months, how many places have you lived? 1 12/16/2022 In the last 12 months, was t here a time when you did not have a steady place to sleep or slept in a senior care (including now)? No 12/16/2022 [place] Depression Scale Answer Date Recorded [place] Depression Scale Total 8 01/07/2023 The thought of harming myself has occurred to me . Never 01/07/2023 Personal Safety Answer Date Recorded Have you ever been in or are you currently in a harmful physical or emotional relationship or is someone making you feel afraid or unsafe? Denies 02/04/2023 Comments No Sex and Gender Information Value Date Recorded Sex Assigned at Not on file Legal Sex Female 1:45 PM CERTIFIED ATHLETIC TRAINER Gender Identity Not on file Sexual Orientation Not on file Occupation Industry Job Start Date Job End Date Self employed Not on file Not on file Not on file Last Filed Vital Signs Vital Sign Reading Time Taken Comments Blood Pressure 107/75 08/10/2023 8:03 AM CDT Pulse 68 02/04/2023 8:30 PM CERTIFIED ATHLETIC TRAINER Temperature 36.3 C (97.3 F) 02/04/2023 8:31 PM CERTIFIED ATHLETIC TRAINER Respiratory Rate 18 02/04/2023 8:30 PM CERTIFIED ATHLETIC TRAINER Oxygen Saturation 100% 02/04/2023 8:30 PM CERTIFIED ATHLETIC TRAINER Inhaled Oxygen Concentration - - Weight 139.2 kg (306 lb 12.8 oz) 08/10/2023 8:03 AM CDT Height 162.6 cm (5' 4 ) 08/10/2023 8:03 AM CDT Body Mass Index 52.66 08/10/2023 8:03 AM CDT Plan of Treatment Not on file Procedures Procedure Name Priority Date/Time Associated Diagnosis Comments HEPATITIS C ANTIBODY Routine 06/23/2022 3:34 PM CDT Supervision of other normal , antepartum PAP WITH REFLEX TO HIGH RISK HPV Routine 05/26/2022 3:11 PM CERTIFIED ATHLETIC TRAINER Supervision of other normal , antepartum from Last 3 Months or Most Recently Relevant to Health Maintenance Results * Hepatitis C antibody (06/23/2022 3:34 PM CDT) Hep C Ab Nonreactive Nonreactive [facility] Comment:Antibodies to HCV no t detected. Does NOT exclude the possibility of recent exposure to HCV. Current interpretive data was last revised on 21 Blood 06/23/2022 3:34 PM CDT 06/23/2022 4:44 PM CDT us Светлана Hogan MD LAB MICROBIOLO GY - GENERAL ORDERABLES Final Result Performing Organization Address City/[facility] Co de Phone Number [facility] Department [place] [address] * Pap with reflex to High Risk HPV (05/26/2022 3:11 PM CERTIFIED ATHLETIC TRAINER) CLINICAL INFORMATION: NO ABNL [facility] LMP EARLY Ques t Scaled [facility] Previous Pap EARLY PARGNANCY Q uest Scaled [facility] Prev. Bx NONE GIVEN [facility] Scaled [facility] SOURCE: Cervix, Endocervix [facility] Pap, specimen adequacy Satisfactory for evaluation. Endocervical/galvez sformation zone component present. [facility] Scaled [facility] HPV interp Negative for intraepithelial lesion or malignancy. [facility] Scaled [facility] COMMENTS This Pap test has been evaluated with computer assisted technology. [facility] Gps Field Data Collector LMT, CT(ASCP) CT screening location: [place] [address] [place] [address] [facility] Comment [facility] Comment: EXPLANATORY NOTE: The Pap is a screening test for cervical cancer. It is not a diagnostic test and is subject to false negative and false positive results. It is most reliable when a satisfactory sample, regularly obtained, is submitted with relevant clinical findings and history, and when the Pap result is evaluated along with historic and current clinical information. Thin prep 05/26/2022 3:11 PM CERTIFIED ATHLETIC TRAINER 05/27/2022 4:08 AM CERTIFIED ATHLETIC TRAINER us Светлана Charu Hogan MD LAB CYTOLOGY O RDERABLES Final Result Performing Organization Address [facility] Co de Phone Number [facility] [address] [place] [address] from Last 3 Months or Most Recently Relevant to Health Maintenance Insurance [employer]PA IDPA Advance Directives For more information, please contact: [phone] * Full Code (Latest Code Status on File) Date Activated Date Inactivated Comments 12/16/2022 3:55 AM 12/17/2022 4:38 PM * Full Code Date Activated Date Inactivated Comments 12/15/2022 9:36 AM 12/16/2022 3:55 AM Full CPR in case of cardiopulmonary arrest * Full Code Date Activated Date Inactivated Comments 11/20/2020 2:51 AM 11/22/2020 7:53 PM * Full Code Date Activated Date Inactivated Comments 11/19/2020 6:15 PM 11/20/2020 2:50 AM Full CPR in case of cardiopulmonary arrest * Full Code Date Activated Date Inactivated Comments 11/15/2019 10:23 AM 11/19/2019 1:14 AM Care Teams Bench Assembly Inspector Relationship Specialty Start Date End Date Koby Howard MD PCP - General Internal Medicine 05/04/18
--- OUTSIDE RECORDS SUMMARY | 2024-07-18 12:56 | XMS_ITS | Clinical Summary ---
Author Organization [facility] Address [address] [place] [address] Care Team Providers Care Demolition Expert Name Role Phone Koby Howard MD Primary Care Provider [phone] Allergies Active Allergy Reactions Criticality Noted Date [...] ABORH O Positive 06/23/2022 IDCOOMB Negative 06/23/2022 [id number] Nonreactive 06/23/2022 LABRPR Nonreactive 06/23/2022 RUBELIGG Reactive [...] out provided @ 36wks Girl, formula feeding, [facility] Teaching: [x] 1st visit [x] 28-30 week [x] 36 week Initial BMI >50 (gestational weight goal <15lbs) 1st visit: [] Early HgbA1c and TSH [] Order specialized anatomy for 20-22wks [] 1mg folic acid and ASA @ 12wks [] JAYMIE eval (referral if indicated) [] Nutritional Consult Referral ([facility]) [] Discuss risks and limitations of [...] ABORH O Positive 05/02/2020 IDCOOMB Negative 05/02/2020 [id number] Nonreactive 05/02/2020 LABRPR Nonreactive 05/02/2020 RUBELIGG Reactive [...] out provided @ 36wks Girl, formula feeding, [facility] peds Teaching: [x] 1st visit [x] 28-30 [...] 11/04/2022,10/02/2020,09/28/2019 Varicella 12/17/2022(Deferred: No longer n eeded) Surgical History Surgery Date Site/Laterality Comments SECTION 03/23/2019 - 03/22/2020 CHOLECYSTECTOMY 2021 Medical History Medical History Date Comments Anxiety Depression Hiatal hernia Heartburn Morbid obesity (HCC) Family History Medical History Relation Name Comments Hypertension Father Felton Hypertension Mother Vanessa Anesthesia problems Neg Hx Relation Name Status Comments Father Felton Mother Vanessa Social History Tobacco Use Types Packs/Day Years [...] 12/16/2022 How often do you attend chur or druze services? Never 12/16/2022 Do you belong to any clubs o r organizations such as yarsanism groups, unions, fraternal or athletic groups, or [...] you are drinking? Patient does not drink Q3: How often do you have si [...] place to sleep or slept in a correction (including now)? 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 Main C ampus ([facility] L AND D PROCEDURE) 2020 Term 38w 4d 0h 41m 0h 31m/0h 10m 3.52 kg (7 lb 12.2 oz) F Vag-Sp ont Epidur al N Livin g 6 7 VOLOS KI,Mathew Begum MD Complications:None Delivery Location:[facility] Main C ampus ([facility] 58LD) 2022 Term 38w 4d 0h 11m 0h 11m 4.08 kg (8 lb 15.9 oz) F Vagina l Epidur al N Livin g 8 9 VOLOS KI,GI Higinio Moulton MD Complications:None Delivery Location:[facility] Main C ampus ([facility] 58LD) Comments 2019- - name TBA [id number]- Everlei -38.3 today. She is being sent from clinic as a direct admit to L&D for TOLAC, cervix 4/50/-3 in clinic painfully nati every 5 minutes. H/o LTCS for AOD. cHTN and pre-e in G1. 7 lbs 12 oz. EBL 500cc from periclitoral, right labial, and 1st degree lacerations. 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 Inhaled Oxygen Concentration - - Weight 139.2 kg (306 lb 12.8 oz) 08/10/2023 8:03 AM CDT Height 162.6 cm (5' 4 ) 08/10/2023 8:03 AM CDT Body Mass Index 52.66 08/10/2023 8:03 AM CDT Plan of Treatment Health Maintenance Due Date Last Done Comments Varicella Vaccines (2 of 2 - 2-dose childhood series) 2001 11/19/1999 HPV Vaccines (1 - 3-dose series) 2012 Regular Well Visit/Exam 18-64 08/12/2015 Cervical Cancer Screening 05/27/2023 05/26/2022, Depression Screening 01/08/2024 01/07/2023 Influenza Vaccine (Season Ended) 2024 DTaP/Tdap/Td Vaccine (8 - Td or Tdap) 11/04/2032 11/04/2022, 10/02/2020, 09/28/2019, Additional history exists Hepatitis B Screening Completed 08/02/1998, 998 Hepatitis C Screening Completed 06/23/2022 Pneumococcal vaccine <65 Aged Out No longer eligible based on patient's age to complete this topic Procedures Procedure Name Priority Date/Time Associated Diagnosis Comments HEPATITIS C ANTIBODY Routine 06/23/2022 3:34 PM CDT Supervision of other normal , antepartum PAP WITH REFLEX TO HIGH RISK HPV Routine 05/26/2022 3:11 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 Comment:Antibodies to HCV no t detected. Does NOT exclude the possibility of recent exposure to HCV. 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 Bx NONE GIVEN [facility] SOURCE: Cervix, Endocervix [facility] Pap, specimen adequacy Satisfactory for evaluation. Endocervical/galvez sformation zone component present. [facility] HPV interp Negative for intraepithelial lesion or malignancy. [facility] COMMENTS This Pap test has been evaluated with computer assisted technology. [facility] Ladderman LMT, CT(ASCP) CT screening location: [place] [address] [place] [address] Keyword [facility] Comment [facility] Comment: EXPLANATORY NOTE: The Pap is [...] clinical information. Thin prep 05/26/2022 3:11 PM OVERHAULER BUS TRUCK 05/27/2022 4:08 AM OVERHAULER BUS TRUCK us Светланаcathryn Hogan MD LAB CYTOLOGY O RDERABLES Final Result [facility] [address] [place] [address] from Last 3 Months or Most Recently Relevant to Health Maintenance Insurance [employer] O IDPA [place] [id number] IDPA Advance Directives For more information, please contact: [phone] * Full Code (Latest Code Status on [...] 10:23 AM 11/19/2019 1:14 AM Care Teams Demolition Expert Relationship Specialty Start Date End Date Koby Howard MD PCP - General Internal Medicine 05/04/18
== END 2024-07-18 10:48 | disposition home or self-care (01) ==
PROVIDERS: PCP Internal Medicine
DX: M51.369 Other intervertebral disc degeneration, lumbar region without mention of lumbar back pain or lower extremity pain (principal); S92.352A Displaced fracture of fifth metatarsal bone, left foot, initial encounter for closed fracture; X58.XXXA Exposure to other specified factors, initial encounter
CPT/HCPCS: 72100; 73630

== ENCOUNTER 2025-01-30 09:46 | Emergency (ER) | payer BC, MEDICAID, SELFPAY ==
[2025-01-30 09:52] VITALS: BP 150/92; PULSE 91; RESP 16; TEMP 36.4; O2SAT 100
--- OUTSIDE RECORDS SUMMARY | 2025-01-30 10:26 | XMS_ITS | Clinical Summary ---
Author Organization [facility] Address [address] [place] [address] Care Team Providers Care Food Service Worker Name Role Phone Koby Howard MD Primary Care Provider Allergies Active Allergy Reactions Criticality Noted Date [...] ABORH O Positive 06/23/2022 IDCOOMB Negative 06/23/2022 [id number] Nonreactive 06/23/2022 LABRPR Nonreactive 06/23/2022 RUBELIGG Reactive [...] out provided @ 36wks Girl, formula feeding, [facility] Teaching: [x] 1st visit [x] 28-30 week [x] 36 week Initial BMI >50 (gestational weight goal <15lbs) 1st visit: [] Early HgbA1c and TSH [] Order specialized anatomy for 20-22wks [] 1mg folic acid and ASA @ 12wks [] JAYMIE eval (referral if indicated) [] Nutritional Consult Referral ([facility]) [] Discuss risks and limitations of [...] ABORH O Positive 05/02/2020 IDCOOMB Negative 05/02/2020 [id number] Nonreactive 05/02/2020 LABRPR Nonreactive 05/02/2020 RUBELIGG Reactive [...] out provided @ 36wks Girl, formula feeding, [facility] Teaching: [x] 1st visit [x] [...] oz pur e alcohol) Social Connection and Isolation Panel Answer Date Recorded In a typical week, how many times do you talk on the phone with family, friends, or neighbors? More than three times a week 12/16/2022 How often do you get togethe r with friends or relatives? Three times a week 12/16/2022 How often do you attend [facility] or islam services? Never 12/16/2022 Do you belong to any clubs o r organizations such as anabaptist groups, unions, [email or web address] or athletic groups, or school groups? No [...] place to sleep or slept in a fdc (including now)? 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 Gender Identity Not on file Sexual Orientation [...] N Livin g 6 9 VOLOS GREER,JOY CHEKO DIOR Dicki son, Paul Balderrama MD Complications:Pre eclampsia, Failure to Progress in Second Stage Delivery Location:[facility] Main C ampus ([facility] L AND D PROCEDURE) 2020 Term 38w 4d 0h 41m 0h 31m/0h 10m 3.52 kg (7 lb 12.2 oz) F Vag-Sp ont Epidur al N Livin g 6 7 VOLOS KI,GI Mathew Wang MD Complications:None Delivery Location:[facility] Main C ampus ([facility] 58LD) 2022 Term 38w 4d 0h 11m 0h 11m 4.08 kg (8 lb 15.9 oz) F Vagina l Epidur al N Livin g 8 9 VOLOS KI,GI Higinio Moulton MD Complications:None Delivery Location:[facility] Main C ampus ([facility] 58LD) Comments - name TBA [id number]-Everlei-38.3 today. She is being sent from clinic [...] ordered to be pulled at 12 hours [id number]-periurethral Last Filed Vital Signs Vital Sign Reading Time Taken Comments Blood Pressure 107/75 08/10/2023 8:03 AM CDT Pulse 68 02/04/2023 8:30 PM PONY ROUGHER Temperature 36.3 C (97.3 F) 02/04/2023 8:31 PM PONY ROUGHER Respiratory Rate 18 02/04/2023 8:30 PM PONY ROUGHER Oxygen Saturation 100% 02/04/2023 8:30 PM PONY ROUGHER Inhaled Oxygen Concentration - - Weight 139.2 kg (306 lb 12.8 oz) 08/10/2023 8:03 AM CDT Height 162.6 cm (5' 4) 08/10/2023 8:03 AM CDT Body Mass Index 52.66 08/10/2023 8:03 AM CDT Plan of Treatment Health Maintenance Due Date Last Done Comments Varicella Vaccines (2 of 2 - 2-dose childhood series) 2001 11/19/1999 Regular Well Visit/Exam 18-64 08/12/2015 Cervical Cancer Screening 05/27/2023 05/26/2022, Depression Screening 01/08/2024 01/07/2023 HPV Vaccines (1 - 3-dose SCDM series) 2024 Influenza Vaccine (#1) 2024 DTaP/Tdap/Td Vaccine (8 - Td or [...] HIGH RISK HPV Routine 05/26/2022 3:11 PM PONY ROUGHER Supervision of other normal , antepartum from Last 3 Months or Most Recently Relevant to Health Maintenance Results * Hepatitis C antibody (06/23/2022 3:34 PM CDT) Hep C Ab Nonreactive Nonreactive [facility] Comment:Antibodies to HCV no t detected. Does NOT exclude the possibility of recent exposure to HCV. Current interpretive data was last revised on 21 Blood 06/23/2022 3:34 PM CDT 06/23/2022 4:44 PM CDT us Светлана Charu Hogan MD LAB MICROBIOLO GY - GENERAL ORDERABLES Final Result [facility] Department [place] [address] * Pap with reflex to High Risk HPV (05/26/2022 3:11 PM PONY ROUGHER) CLINICAL INFORMATION: NO ABNL [facility] LMP EARLY Ques t [facility] Previous Pap EARLY PARGNANCY Q uest Diagnostics [facility] Prev. Bx NONE GIVEN [facility] SOURCE: Cervix, Endocervix [facility] Pap, specimen adequacy Satisfactory for evaluation. Endocervical/galvez sformation zone component present. [facility] HPV interp Negative for intraepithelial lesion or malignancy. [facility] COMMENTS This Pap test has been evaluated with computer assisted technology. [facility] Contracts Representative LMT, CT(ASCP) CT screening location: [place] [address] [place] [address] [facility] Comment [facility] Comment: EXPLANATORY NOTE: The Pap is a [...] clinical information. Thin prep 05/26/2022 3:11 PM PONY ROUGHER 05/27/2022 4:08 AM PONY ROUGHER us Светлана Hogan MD LAB CYTOLOGY O RDERABLES Final Result [facility] [address] [place] [address] from Last 3 Months or Most Recently Relevant to Health Maintenance Insurance [employer] O IDPA IDPA Advance Directives For more information, please contact: [phone] * Full Code (Latest Code Status on [...] 10:23 AM 11/19/2019 1:14 AM Care Teams Food Service Worker Relationship Specialty Start Date End Date Koby Howard MD PCP - General Internal Medicine 05/04/18
--- OUTSIDE RECORDS SUMMARY | 2025-01-30 10:27 | XMS_ITS | Data Portability ---
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 Material Scheduler variances may occur. Despite proofreading, typographical errors may occur. Occasional wrong-word or 'dkhxd-c-qnen' substitutions may have occurred due to the inherent limitations of voice recording. Read the chart carefully and recognize, using context, where substitutions have occurred. Not available 12/26/2024 08:50:53 12/29/2024 12/29/2024 This note is dictated and transcribed by [employer]. Material Scheduler variances may occur. Despite proofreading, typographical errors may occur. Occasional wrong-word or 'ahcxy-q-fgyf' substitutions may have occurred due to the inherent limitations of voice recording. Read the chart carefully and recognize, using context, where substitutions have occurred. Not available 01/09/2025 10:05:51 01/09/2025 01/09/2025 This note is dictated and transcribed by [employer]. Material Scheduler variances may occur. Despite proofreading, typographical errors may occur. Occasional wrong-word or 'xidbj-v-dwxf' substitutions may have occurred due to the inherent limitations of voice recording. Read the chart carefully and recognize, using context, where substitutions have occurred. Not available 01/09/2025 10:02:40 01/16/2025 01/16/2025 This note is dictated and transcribed by [employer]. Material Scheduler variances may occur. Despite proofreading, typographical errors may occur. Occasional wrong-word or 'xvpyw-y-iirf' substitutions may have occurred due to the inherent limitations of voice recording. Read the chart carefully and recognize, using context, where substitutions have occurred. [email or web address] Not available 01/16/2025 16:29:05 01/23/2025 01/23/2025 This note is dictated and transcribed by [employer]. Material Scheduler variances may occur. Despite proofreading, typographical errors may occur. Occasional wrong-word or 'jbbta-u-gptc' substitutions may have occurred due to the inherent limitations of voice recording. Read the chart carefully and recognize, using context, where substitutions have occurred. Not available 01/24/2025 10:19:57 Plan of Treatment Reminders Order Date Submit Date Provider Last Modified By Organization Details Last Modified Time Details Appointments Establish ed Patient 15 2024 03:15P Lisa Hebert DPM Not available Not available Not available Lab None recorded. Referral None recorded. Procedures None recorded. Surgeries None recorded. Imaging XR, foot, 3 or more view 2024 025 [email or web address] [facility] [place], [address], [place], [address], 01/24/2025 10:21:58 XR, foot, 3 or more view 2024 025 [email or web address] [facility] [place], [address], [place], [address], 01/09/2025 10:11:06 XR, foot, 3 or more view 2024 025 [email or web address] [facility] [place], [address], [place], [address], 12/26/2024 08:53:29 Medication Orders gentamici n 0.1 % topical cream 2024 025 [id number], [address], [place], [id number], 01/09/2025 10:12:11 doxycycli ne hyclate 100 mg capsule 2024 025 [id number], [address], [place], [phone], 01/26/2025 05:01:59 Patient TargetsNo targets recorded. Patient InstructionsNo instructions recorded. Reason for Referral None Reported. Results Created Date Observation Date Name Description Value Unit Range Abnormal Flag Note LastModifiedBy Organization Detail LastModifiedTime 12/10/1912/09/2024 URINE HCG QUAL/ POINT OF CARE point of care urine preg negati ve negati ve Not Available [facility] (Lab) [address], [place], [address], 12/09/2024 07:21:44 11/24/19 25 samir avalos am No observ ation record ed. [email or web address] [facility] [address] [place], [address], 11/23/2024 15:50:51 11/30/19 25 11/24/2024 rhyth m strip , EKG* No observ ation record ed. BARCODE Not Available 2024 14:14:21 12/27/19 25 XR, foot, 3 or more view No observ ation record ed. [email or web address] [facility] [place] [address] [facility] [address], [place], [address], 12/26/2024 08:53:28 01/10/20 25 XR, foot, 3 or more view No observ ation record ed. [email or web address] [facility] [place] [address] [facility] [address], [place], [address], 01/09/2025 10:09:53 01/25/20 25 XR, foot, 3 or more view No observ ation record ed. [email or web address] [facility] [place] [address], [place], [address], 01/24/2025 10:21:56 Result Notes None recorded. Problems Name Problem SNOMED Code Status Onset Date Resolution Date Notes Provider Name and Address Organization Details Recorded Time Paronychi a of toe of right foot 25709153590 428270 Completed 201903/11/2023 Evi coreas RMA null, [place] [facility] [place] [facility] 3 11:07:24 Obesity 094489496 Active 2021 Evi coreas RMA null, [place] [facility] 3 11:07:17 Injury of toe 245694750 Completed 202203/11/2023 Evi coreas RMA null, [place] [facility] 3 11:07:19 Gastroeso phageal reflux disease 712686056 Active 2022 Evi coreas RMA null, [place] [facility] 5 15:51:01 Irritable bowel syndrome 38340941 Active 2022 Evi coreas RMA null, [place] [facility] 15:51:04 Anemia 512170302 Active 2024 Evi coreas RMA null, [facility] 5 15:49:27 Depressiv e disorder 32866004 Active 2024 Evi coreas RMA null, [place] [facility] 5 15:50:59 Restless legs syndrome 20528914 Active 2024 Evi coreas RMA null, [place] [facility] 5 15:51:07 Anxiety 38041543 Active 2024 Evi coreas RMA null, [place] [facility] 5 15:50:53 Allergic rhinitis 06225832 Active 2024 Evi coreas RMA null, [place] [facility] 5 15:49:23 Pain in left foot 45933188291 9107 Completed 202409/12/2024 Ebenezer Hebert DPM [address], [address], [place], [address] , [facility] 5 10:10:55 Low back pain 049936415 Completed 202409/12/2024 Evi coraes RMA null, [place] [facility] 5 15:51:15 Closed fracture of fifth metatarsa l bone of left foot 22372897054 288290 Completed 202409/12/2024 Evi coreas RMA null, [facility] 5 15:51:18 COVID-19 418686846 Completed 202409/12/2024 Evi coreas RMA null, [facility] 5 15:50:56 Gastroeso phageal reflux disease without esophagit is 166444120 Active 2024 Evi coreas RMA null, [facility] 5 15:53:32 Morbid obesity 310806309 Active 2024 Tejas Howard MD [address], [address], [place], [address] , [facility] 5 16:09:27 History of attention deficit hyperacti vity disorder 61585755946 107 Active 2024 Lary rowe, [facility] 5 12:10:34 Excessive sweating 92363297 Active 2024 Lary rowe, [facility] 5 12:11:04 Heartburn 40883543 Active 2024 Lary Shannon rowe, [facility] [employer] [facility] 5 12:12:03 Essential hypertens ion 38545240 Active 2024 Lary Shannon rowe, [facility] [employer] [facility] 5 12:12:18 Pain in left foot 37515592598 9107 Active 2024 Ebenezer Hebert DPM [address], [address], [place], [address] , [facility] [employer] [facility] [employer] [facility] 5 10:10:55 Closed fracture of fifth metatarsa l bone 98577980 Active 2024 Ebenezer Hebert DPM [address], [address], [place], [address] , [facility] [employer] [facility] [employer] [facility] 5 10:06:26 Otitis externa 5631442 Active 2024 SCARLETT Renteria [address], [address], [place], [address] , [facility] [employer] [facility] [employer] [facility] 5 15:11:06 Streptoco ccal sore throat 50336557 Active 2024 SCARLETT Renteria [address], [address], [place], [address] , [facility] [employer] [facility] [employer] [facility] 5 10:45:28 Sexually transmitt ed infectiou s disease 3188803 Active 2024 SCARLETT Renteria [address], [address], [place], [address] , [facility] [employer] [facility] [employer] [facility] 5 16:17:55 Dysuria 65866487 Active 2024 SCARLETT Renteria [address], [address], [place], [address] , [facility] [employer] [facility] 5 16:20:05 Dehiscenc e of surgical wound 18621892 Active 2024 Ebenezer Hebert DPM [address], [address], [place], [address] , [facility] [employer] [facility] 5 10:02:56 Notes:Medical History: Depre ssion/Anxiety Rhinitis Obesity Hiatal hernia with FAZAL IBS Splenomegaly Microcytic anemia RLS Procedure History: Cholecystectomy 2021 Problem Notes None recorded. Procedures Surgical History Date Name Laterality Status Provider Name and Address Organization Details Recorded Time 12/30/19 25 Suture Removal completed Ebenezer Hebert, DPLisa [address], [address], [place], [address], [facility] [employer] [facility] 01/09/2025 10:04:37 06/04/19 22 Cholecystectomy completed Not Available [facility] 03/2022 18:35:39 section completed Lizzy Ortega [place] [employer] [facility] [employer] [place] 09/19/2024 12:14:47 Imaging Results None recorded. Procedure Notes None recorded. Medical Equipment None Reported. Allergies Allergen ID Allergen Name Allergen Category Reaction Reaction Severity Criticality Documentation Date Start Date Code Code System Note Provider Name and Address Organization Details Recorded Time 64832 codeine medicatio n Not available Not available Not available 05/21/2022 2670 RxNorm Not Available [facility] 3 18:37:37 93225 amoxicill in medicatio n Not available Not available Not available 09/19/2024 723 RxNorm Lary Orte[facility], [facility] [employer] 5 12:01:40 Medications Name Sig Start Date Stop Date Status Note LastModified by Organization Details LastModified Time nifedipin e ER 30 mg tablet,ex tended release 24 hr 06/13 completed Not Available Not Available Not Available amoxicill in 500 mg capsule TK ONE C PO TID X 7 days 07/13 completed Not Available Not Available Not Available bupropion HCl SR 150 mg tablet,12 hr sustained -release TK 1 T PO QAM 12/21 completed Not Available Not Available Not Available prednison e 10 mg tablet 05/27 completed Not Available Not Available Not Available venlafaxi ne ER 75 mg capsule,e xtended release 24 hr TK 1 T PO HS 10/08 completed Not Available Not Available Not Available doxycycli ne hyclate 100 mg capsule Take 1 capsule twice a day by oral route as directed for 10 days. 01/26 completed Not Available Not Available Not Available azithromy regis 250 mg tablet TAKE 2 TABLETS BY MOUTH ON DAY 1 THEN 1 TABLET EVERY DAY FOR 4 MORE DAYS active Not Available Not Available No t Available ibuprofen 800 mg tablet Take 1 tablet 3 times a day by oral route. 08/05 completed Not Available Not Available Not Available benzonata te 200 mg capsule Take 1 capsule 3 times a day by oral route as needed for 7 days. active Not Available Not Available No t Available prazosin 1 mg capsule TK ONE C PO QHS 06/02 completed Not Available Not Available Not Available ondansetr on HCl 4 mg tablet TAKE 1 TABLET BY MOUTH EVERY 8 HOURS NEEDED FOR NAUSEA AND VOMITING 08/05 completed Not Available Not Available Not Available clonazepa m 0.5 mg tablet 04/23 completed Not Available Not Available Not Available sertralin e 100 mg tablet TAKE 1 TABLET BY MOUTH EVERY DAY 08/05 completed Not Available Not Available Not Available miconazol e nitrate 2 % vaginal cream I 1 APL VAGINALL Y Q NIGHT FOR 7 DAYS 08/05 completed Not Available Not Available Not Available clonazepa m 1 mg tablet TK 1 T PO HS 10/08 completed Not Available Not Available Not Available venlafaxi ne ER 150 mg capsule,e xtended release 24 hr TK ONE C PO QAM 10/08 completed Not Available Not Available Not Available prochlorp erazine maleate 10 mg tablet TAKE 1 TABLET BY MOUTH EVERY 6 HOURS NEEDED FOR HEADACHE 08/05 completed Not Available Not Available Not Available sulfameth oxazole 800 mg-trimet hoprim 160 mg tablet 10/21 completed Not Available Not Available Not Available tramadol 50 mg tablet Take 1 tablet 3 times a day by oral route. active Not Available Not Available No t Available triamcino lone acetonide 0.1 % topical cream APPLY A THIN LAYER TO THE AFFECTED AREA(S) BY TOPICAL ROUTE 2 TIMES PER DAY active Not Available Not Available No t Available bupropion HCl SR 100 mg tablet,12 hr sustained -release 10/21 completed Not Available Not Available Not Available butalbita l-acetami nophen-ca ffeine 50 mg-325 mg-40 mg tablet TAKE 1 TO 2 TABLETS BY MOUTH EVERY 4 HOURS NEEDED UP TO 6 PER 24 HOURS 08/05 completed Not Available Not Available Not Available amoxicill in 500 mg tablet Take 1 tablet 3 times a day by oral route for 7 days. 04/20 completed ok per 01/28/24 patient case / ds Not Available Not Available Not Available oxycodone -acetamin ophen 5 mg-325 mg tablet TAKE 1 TABLET BY MOUTH EVERY 4 TO 6 HOURS NEEDED 08/05 completed Not Available Not Available Not Available propranol ol 10 mg tablet TAKE 1 TABLET BY MOUTH TWICE DAILY NEEDED FOR ANXIETY OR SWEATING active Not Available Not Available No t Available lorazepam 0.5 mg tablet TK 2 TS PO HS 12/21 completed Not Available Not Available Not Available dicyclomi ne 20 mg tablet Take 1 tablet 3 times a day by oral route as needed. active Not Available Not Available No t Available lorazepam 2 mg tablet TK SS T PO HS 12/21 completed Not Available Not Available Not Available doxycycli ne monohydra te 100 mg capsule Take 1 capsule twice a day by oral route for 5 days. active Not Available Not Available No t Available econazole nitrate 1 % topical cream Apply 1 applicat ion twice a day by topical route. active Not Available Not Available No t Available cephalexi n 500 mg capsule 05/27 completed Not Available Not Available Not Available pantopraz ole 40 mg tablet,de layed release TAKE 1 TABLET BY MOUTH EVERY DAY IN THE MORNING 07/18 completed KAYLYN 04/16/23 NOV 04/20/24 ok to rf Not Available Not Available Not Available ranitidin e 150 mg tablet Take 1 tablet twice a day by oral route. 06/02 completed OTC Not Available Not Available Not Available minocycli ne 50 mg capsule 05/27 completed Not Available Not Available Not Available betametha sone dipropion ate 0.05 % topical cream 05/27 completed Not Available Not Available Not Available sertralin e 25 mg tablet TAKE 2 TABLETS BY MOUTH EVERY DAY 08/05 completed Not Available Not Available Not Available omeprazol e 20 mg capsule,d elayed release TAKE 1 CAPSULE BY MOUTH EVERY DAY NEEDED active Not Available Not Available No t Available gentamici n 0.1 % topical cream APPLY A SMALL AMOUNT TO THE AFFECTED AREA THREE TIMES DAILY active Not Available Not Available No t Available cephalexi n 500 mg tablet TAKE 1 TABLET BY MOUTH EVERY 8 HOURS FOR 7 DAYS 08/10 completed Not Available Not Available Not Available hydroxyzi ne HCl 25 mg tablet TAKE 1 TABLET BY MOUTH THREE TIMES DAILY NEEDED FOR ANXIETY active Not Available Not Available No t Available ranitidin e 150 mg capsule Take 1 capsule twice a day by oral route. 08/05 completed Not Available Not Available Not Available gabapenti n 100 mg capsule TAKE 1 TO 2 CAPSULES BY MOUTH DAILY AT BEDTIME FOR RESTLESS LEGS active Not Available Not Available No t Available lorazepam 1 mg tablet TAKE 1 TABLET BY MOUTH DAILY NEEDED FOR PANIC ATTACKS/ EXTREME ANXIETY. active Not Available Not Available No t Available ibuprofen 600 mg tablet 06/13 completed Not Available Not Available Not Available methylpre dnisolone 4 mg tablets in a dose pack Take 1 dose pk by oral route. 05/25 completed Not Available Not Available Not Available hydroxyzi ne HCl 10 mg tablet TAKE 1 TO 2 TABLETS BY MOUTH TWICE DAILY NEEDED FOR ANXIETY OR INSOMNIA 09/19 completed Not Available Not Available Not Available ondansetr on 4 mg disintegr ating tablet DISSOLVE 1 TABLET ON THE TONGUE EVERY 8 HOURS NEEDED FOR NAUSEA OR VOMITING 09/12 completed Not Available Not Available Not Available fluoxetin e 20 mg capsule TAKE 1 CAPSULE BY MOUTH DAILY active Not Available Not Available No t Available sertralin e 50 mg tablet TAKE 2 TABLETS BY MOUTH EVERY DAY 08/05 completed Not Available Not Available Not Available dicyclomi ne 10 mg capsule TAKE 1 CAPSULE BY MOUTH THREE TIMES DAILY NEEDED active Not Available Not Available No t Available naproxen 500 mg tablet 10/21 completed Not Available Not Available Not Available metoclopr amide 10 mg tablet TAKE 1/2 TABLET BY MOUTH 4 TIMES DAILY BEFORE MEALS AND AT NIGHT 08/05 completed Not Available Not Available Not Available esomepraz ole magnesium 20 mg capsule,d elayed release TAKE 1 CAPSULE (20 MG TOTAL) BY MOUTH DAILY BEFORE BREAKFAS T 08/05 completed Not Available Not Available Not Available oxycodone 5 mg tablet 08/05 completed Not Available Not Available Not Available azithromy regis 500 mg tablet Take 1 500mg tablet on x1 on day 1, then 250mg PO q24h x4 days. 2024 active Not Available Not Available Not Bonillaai earle Sprintec (28) 0.25 mg-0.035 mg tablet 06/13 completed Not Available Not Available Not Available atomoxeti ne 40 mg capsule TAKE 1 CAPSULE BY MOUTH DAILY IN THE MORNING 09/12 completed Not Available Not Available Not Available cyclobenz aprine 5 mg tablet 08/05 completed Not Available Not Available Not Available ciproflox acin 0.3 %-dexamet hasone 0.1 % ear drops,mitzy pension SHAKE LIQUID AND INSTILL 4 DROPS TO AFFECTED EAR TWICE DAILY FOR 7 DAYS active Not Available Not Available No t Available bupropion HCl XL 300 mg 24 hr tablet, extended release TAKE 1 TABLET BY MOUTH DAILY IN THE MORNING active Not Available Not Available No t Available Vitamin B-6 08/05 completed Not Available Not Available Not Available progester one 09/12 completed Not Available Not Available Not Available Tylenol 06/13 completed Not Available Not Available Not Available 08/05 completed Not Available Not Available Not Available PrePlus 27 mg iron-1 mg tablet 08/05 completed Not Available Not Available Not Available Epiduo Forte 0.3 %-2.5 % topical gel with pump 05/27 completed Not Available Not Available Not Available Blisovi Fe 1.5/30 (28) 1.5 mg-30 mcg (21)/75 mg (7) tablet TK 1 T PO QD 06/02 completed Not Available Not Available Not Available Larissia 0.1 mg-20 mcg tablet TAKE 1 TABLET BY MOUTH EVERY DAY 01/27 completed Not Available Not Available Not Available BinaxNOW COVID-19 Ag Self Test kit TEST DIRECTED TODAY 08/10 completed Not Available Not Available Not Available Paxlovid 300 mg (150 mg x 2)-100 mg tablets in a dose pack TK 2 NIRMATRE LVIR TS AND 1 RITONAVI R T TOGETHER PO TWICE DAILY 09/12 completed Not Available Not Available Not Available Gallifrey 5 mg tablet TAKE 1 TABLET BY MOUTH DAILY active Not Available Not Available No t Available Vitals Date Recorded Oxygen saturation Oxygen saturation in Arterial blood by Pulse oximetry Body temperature Heart rate Systolic And Diastolic Provider Name and Address Organization Details Last Updated DateTime 97 % 97 % 98.2 [degF] 70 /min 155/83 mm[Hg] Bryan Camilo Gisela [facility] [employer] [facility] 5 16:45:59 Date Recorded Body height Body mass index (BMI) Body weight Provider Name and Address Organization Details Last Updated DateTime 12/19/2024 162.56 cm 53.7 kg/m2 442554.41 g Aileen Guerra [facility] 12/19/2024 16:40:27 Date Recorded Body height Body mass index (BMI) Body weight Body temperature Oxygen saturation Oxygen saturation in Arterial blood by Pulse oximetry Heart rate Systolic And Diastolic Provider Name and Address Organization Details Last Updated DateTime 5 162.56 cm 53.7 kg/m2 878042. 41 g 98.2 [degF] 95 % 95 % 73 /min 121/89 mm[Hg] Bryan Camilo [facility] [employer] [facility] 5 17:00:07 Date Recorded Body height Body mass index (BMI) Body weight Heart rate Respiratory rate Oxygen saturation Oxygen saturation in Arterial blood by Pulse oximetry Provider Name and Address Organization Details Last Updated DateTime 5 162.56 cm 53.7 kg/m2 076020. 41 g 70 /min 14 /min 99 % 99 % Aileen Guerra [facility] [employer] [facility] 5 09:49:56 Date Recorded Body height Body mass index (BMI) Body weight Heart rate Respiratory rate Oxygen saturation Oxygen saturation in Arterial blood by Pulse oximetry Systolic And Diastolic Provider Name and Address Organization Details Last Updated DateTime 5 162.56 cm 53.7 kg/m2 254610. 41 g 87 /min 14 /min 99 % 99 % 142/84 mm[Hg] Aileen Guerra [facility] [employer] [facility] 5 16:15:46 Date Recorded Body height Body mass index (BMI) Body weight Heart rate Respiratory rate Oxygen saturation Oxygen saturation in Arterial blood by Pulse oximetry Systolic And Diastolic Provider Name and Address Organization Details Last Updated DateTime 162.56 cm 53.7 kg/m2 023045. 41 g 81 /min 14 /min 99 % 99 % 142/98 mm[Hg] Aileen HUDSON [employer] [place] 16:54:00 Social History Question Answer Notes LastModified by Organizat ion Details LastModified Time Tobacco Smoking Status Never Smoker Not Available [facility] 05/21/2022 18:35:37 What Was The Date Of Your Most Recent Tobacco Screening? 12/29/2024 Information not available 12/29/2024 Do You Use Your Seat Belt Or Car Seat Routinely? Yes Information not available 11/07/2024 Have You Recently Traveled Abroad? No [id number] Information not available 05/21/2022 Sex: Unknown Functional Status Question Answer Note LastModified by Organizat ion Details LastModified Time What is your level of alcohol consumption? Occasional [email or web address] Information not available 09/19/2024 Mental Status Question Answer Note LastModified by Organization D etails LastModified Time Do you feel stressed (tense, restless, nervous, or anxious, or unable to sleep at night)? [id number] Information not available 11/07/2024 Family History Relationship Description Onset Age of this Age Resolved Age Notes LastModified by Organization Details LastModified Time Mother Cholecystect adalberto [id number] Not available 05/21/2022 18:35:41 Father Hypertensive disorder [email or web address] Not available 2024 12:12:38 Maternal Grandfather Blood coagulation disorder [email or web address] Not available 2024 12:13:06 Medical History Condition Response ANXIETY DISORDER Y OBESITY Y BOWEL PROBLEMS Y BACK / NECK PROBLEMS Y DEPRESSION (INCLUDING POST ) Y HEARTBURN / REFLUX Y HYPERTENSION Y Gynecological HistoryNo gynecological history recorded. Obstetrics History GPAL:G 0 P 0 0 0 0 Immunizations Vaccine Type Date Status Note Provider Nam e and Address Organization Details Recorded Time Hep B, adolescent or pediatric 8 completed Not Available [facility] 11/23/2024 15:32:36 Hib, unspecified formulation 8 completed Not Available [facility] 11/23/2024 15:32:36 IPV 8 completed Not Available [facility] 11/23/2024 15:32:36 DTaP 8 completed Not Available [facility] 11/23/2024 15:32:36 IPV 8 completed Not Available [facility] 11/23/2024 15:32:36 Hib, unspecified formulation 8 completed Not Available [facility] 11/23/2024 15:32:36 DTaP 8 completed Not Available [facility] 11/23/2024 15:32:36 DTaP 9 completed Not Available [facility] 11/23/2024 15:32:36 Hib-Hep B 9 completed Not Available [facility] 11/23/2024 15:32:36 IPV 9 completed Not Available [facility] 11/23/2024 15:32:36 MMR 0 completed Not Available [facility] 11/23/2024 15:32:36 DTaP-Hib 0 completed Not Available [facility] 11/23/2024 15:32:36 varicella 0 completed Not Available [facility] 11/23/2024 15:32:36 Hep A, ped/adol, 2 dose 0 completed Not Available [facility] 11/23/2024 15:32:36 meningococcal MCV4P 5 completed Not Available [facility] 11/23/2024 15:32:36 Tdap 1 completed Not Available [facility] 11/23/2024 15:32:36 Tdap 3 completed Not Available [facility] 11/23/2024 15:32:36 Past Encounters Encounter ID Performer Location Encounter Start Date Encounter Closed Date Diagnosis/Indication Diagnosis SNOMED-CT Code Diagnosis ICD10 Code Diagnosis IMO Codes Diagnosis Note [id number] Den rodriguez MD [facility] General Surgery [address], [address] [address] 05/23/2021 00:00:00 05/23/2021 13:21:28 [id number] Den rodriguez MD [facility] General Surgery [address] [place] [address] 06/13/2021 00:00:00 06/13/2021 13:13:16 [id number] Tejas Howard MD [facility] Internal [id number] [facility] [place] [address] 08/05/2021 00:00:00 08/05/2021 16:36:47 [id number] Tejas Howard MD [facility] Internal [address] [place] [address] 01/27/2023 14:08:22 01/27/2023 14:48:06 Injury of toe 281955660 S99.922A likely fx, no significan t symptoms, precaution s discussed [id number] Tejas Howard MD [facility] Internal [address] [place] [address] 03/11/2023 10:55:23 03/11/2023 11:47:20 Gastroesophageal reflux disease 417827017 K21.9 Irritable bowel syndrome 79692947 K58.9 [id number] Tejas Howard MD [facility] Internal [address] [place] [address] 04/16/2023 16:28:01 04/16/2023 16:47:59 Acute right otitis media 102958517 H66.91 sudafed and advil tid [id number] Tejas Howard MD [facility] Internal [address] [place] [address] 04/20/2024 11:24:28 04/20/2024 12:18:44 Obesity 072219284 E66.9 advised to watch diet Gastroesop hageal reflux disease 135532863 K21.9 meds help Irritable bowel syndrome 08685807 K58.9 on meds Anemia 681304250 D64.9 not on iron Diabetes m ellitus screening 916307624 Z13.1 Fatigue 97485323 R53.83 high risk for sleep apnea Sleep jag cleopatra disturbance 95510726 G47.9 sleep score done today, high risk, Depressive disorder 8158 9007 F32.A she will contact her psych Restless l egs syndrome 56960943 G25.81 was on gabapentin , wait for sleep study, check ferritin, iron [id number] Tejas Howard MD [facility] Internal [address] [place] [address] 07/18/2024 09:44:29 07/18/2024 11:01:09 Pain in left foot 2055386962 13414 M79.672 Rest and elevation. Use Ice and OTC ibuprofen/ tylenol at this time. Low back pain 555649490 M54.50 Advised to use heat or ice for muscle relief. Take otc tylenol or advil as needed. Increase exercise for healthy weight loss. Continue diet and exercises. Obesity 685623011 E66.9 Incorporat e exercise and abdominal strengthen ing for muscle and back pain. Continue healthy diet. Avoid processed foods and incorporat e vegetable' s and proteins. Incorporat e water intake. [id number] Tejas Howard MD [facility] Internal [address] [facility] [place] [address] 09/12/2024 15:32:23 09/12/2024 16:14:39 Irritable bowel syndrome 27087556 K58.9 on meds Gastroesop hageal reflux disease without esophagitis 548744366 K21.9 226961 meds help Morbid obesity 244538734 E66.01 93046 advised to watch diet, would benefit from Bariatric surgery [id number] Ebenezer Hebert DPM [facility] Podiatry [place] [address] [place] [address] 09/19/2024 10:27:44 09/20/2024 10:57:35 Pain in left foot 3535972534 97853 M79.672 351411 secondary to belowRx cam bootminima l activities no strenuous activities follow-up in 4 weeks for repeat x-rays Closed fra cture of fifth metatarsal bone 07761724 S92.352A 7955439 discuss treatment options in detailtria l conservati ve protective boot with minimal weight-nettie ringif fails patient will require open reduction internal fixationpa tient denies surgery at this time she has an upcoming trip and will be doing a lot of walking which I advised her against- patient has been walking since the injury and did not follow-up on her initial exam of finding she had a fracture. [id number] Tejas Howard MD [facility] Internal [facility] [address] [facility] [place] [address] 09/20/2024 14:39:28 09/20/2024 16:01:00 Otitis externa 4943073 H60.8X2 [id number] Tejas Howard MD [facility] Internal [facility] [address] [facility] [place] [address] 11/07/2024 15:38:34 11/07/2024 16:32:18 Uses contraception 31601264 Z78.9 1558021 Gynecologi c examination 36231096 Z01.419 432631 Well woman health examination 521593724 Z01.419 754979 Sexually t ransmitted infectious disease 1375560 A64 Adult heal th examination 253547863 Z00.00 Z00.01 Counseling was done on diet and exercise, if this PAP is negative we will consider PAP every 2-3 yrs. Flu shot was offered but patient refused. Dysuria 09581992 R30.0 83749 [id number] Ebenezer Hebert DPM [facility] Podiatry [address] [place] [address] 11/07/2024 16:37:59 11/09/2024 16:12:54 Pain in left foot 5357438068 90431 M79.672 182009 secondary to belowcont cam bootminima l activities no strenuous activities Obtain surgical clearancer eviewed treatment optionsall risks, benefits, complicati ons reviewed with the patient to complete full understand ing. Patient elects to proceed with surgery we will plan on surgery with open reduction internal fixation of the left 5th metatarsal on November 25 pending clearance [id number] Tejas Howard MD [facility] Internal [facility] [address] [place] [address] 11/23/2024 15:31:08 11/23/2024 16:53:28 Preoperative state 27804775 Z01.818 904222 labs completed- in chart [id number] Ebenezer Hebert DPM [facility] Podiatry [place] [address] [place] [address] 12/12/2024 09:58:15 12/13/2024 13:34:20 Postoperative visit 045555246 Z48.89 10052051 Dressings changedCon tinue nonweightb earing left footcontin ue knee scooterele vation of leg when at restIce behind the kneeFollow -up in 1 week [id number] Ebenezer Hebert DPM [facility] Podiatry [place] [address] [place] [address] 12/19/2024 16:39:11 12/26/2024 15:17:23 Postoperative visit 854414313 Z48.89 88500373 Dressings changedCon tinue nonweightb earing left footcontin ue knee scooterele vation of leg when at restIce behind the kneeFollow -up in 1 week [id number] Ebenezer Hebert DPM [facility] Podiatry [address] [place] [address] 12/29/2024 16:39:48 01/10/2025 14:55:15 Closed fracture of fifth metatarsal bone 71626696 S92.352D 99211936 status post open reduction internal fixationSu tures removedrec ommend compressio n sockcontin ue cam boot nonweightb earingfoll ow-up 1 week for x-rays [id number] Ebenezer Hebert DPM [facility] Podiatry [address] [place] [address] 01/09/2025 09:46:10 01/10/2025 14:23:42 Postoperative visit 029373014 Z48.89 13386902 Dressings changed - Betadine wet-to-dry dressing appliedCon tinue nonweightb earing left footcontin ue knee scooterele vation of leg when at restIce behind the kneediscus s x-ray findings with patient mild gap at the fracture area with no significan t signs of healing with intact hardware.F ollow-up in 1 week Dehiscence of surgical wound 05899412 T81.31XA 5019139 Daily wound caremonito r for infection at present seek medical attention immediatel yFollow-up 1 week [id number] Ebenezer Hebert DPM [facility] Podiatry [address] [place] [address] 01/16/2025 16:07:55 01/17/2025 12:56:29 Postoperative visit 093321217 Z48.89 [id number] Dressings changed - Hibiclens wet-to-dry dressing appliedmay weight bear with Cam bootelevat ion of leg when at restIce behind the knee Follow-up in 1 week Dehiscence of surgical wound 07375899 T81.31XA 0346277 Daily wound carefinish doxycyclin econtinue gentamicin cream topicallym onitor for infection at present seek medical attention immediatel yFollow-up 1 week [id number] Ebenezer Hebert DPM [facility] Podiatry [place] [address] [place] [address] 01/23/2025 16:51:08 01/25/2025 14:47:40 Postoperative visit 321966679 Z48.89 [id number] Dressings changed - Hibiclens wet-to-dry dressing appliedmay weight bear with Cam bootelevat ion of leg when at restIce behind the knee Follow-up in 1 week Dehiscence of surgical wound 07977665 T81.31XA 0467085 Daily wound carecontin ue gentamicin cream topicallym onitor for infection at present seek medical attention immediatel yFollow-up 1 week Health Concerns Section Related Observation LastModified by Organization Detai ls LastModified Time None Recorded Concern Status LastModified by Organization Details LastModified Time None Recorded Advance Directives Directive None Recorded Payers Insurance Date Sequence Insurance Name Policy Number Policy Moran Covered Member ID Moran Member ID Guarantor Name 02/09/2024 1 [place] [id number] Vanessa Mansfield [id number] Dulce Chilel 12/29/2024 1 [place] [id number] Dulce Chilel [id number] Dulce Chilel 12/29/2024 1 [place] [facility] Dulce Chilel [id number] Dulce Chilel 12/29/2024 1 [facility] - DOS PRIOR TO 2024 (MEDICAID REPLACEMENT - HMO) [id number] Dulce Chilel [id number] Dulce Chilel 12/29/2024 [facility] - DOS PRIOR TO 2024 (MEDICAID REPLACEMENT - HMO) Dulce Chilel [id number] Dulce Chilel 01/21/2025 1 [facility] - DOS ON OR AFTER 2024 (MEDICAID REPLACEMENT - HMO) [id number] Dulce Chilel [id number] Dulce Chilel Notes Date Note Type Note Provider Name and Address Organization Details Recorded Time 12/19/2024 text/html ROS as noted in the HPI . Patient is a 29-year-old female she follows up for her 1st postop follow-up for open reduction internal fixation of left 5th metatarsal. Patient states she did have a fall she states she did have some bruising and pain. Patient is doing well she states she is offloading. Patient presents in a knee scooter. Patient denies any signs of infection. Patient denies any chest pain, trouble breathing, calf pain. Patient denies any fever, chills, nausea or vomiting. Ebenezer Hebert DPM [address], [place], [address], [employer] [facility] 12/26/2024 08:53:41 12/29/2024 text/html . Patient is a 29-year-old female who returns the office for follow-up on open reduction internal fixation 5th metatarsal left foot. Patient is here for suture removal. Patient states she is doing well she has been utilizing the knee scooter and Cam boot she has been offloading to the left foot. Patient denies any signs of infection. Patient denies any other complaints. Ebenezer Hebert DPM [address], [address], [place], [address], [employer] 01/09/2025 10:12:42 01/09/2025 text/html . Patient is a 29-year-old female who returns the office for follow-up on open reduction internal fixation of fracture to the 5th metatarsal. Patient states that she has had some discomfort she states that the incision started to drain and she has a small wound to the incision area. Patient states she has been keeping the area clean. Patient denies any other complaints. Ebenezer Hebert DPM [address], [place], [address], [employer] 01/09/2025 10:12:07 01/16/2025 text/html . Patient is a 29-year-old female who returns the office for follow-up on wound dehiscence. Patient is slowly healing area she denies any acute signs of infection she denies any significant pain she has been weight-bearing in a cam boot. Patient denies any other complaints. Ebenezer Hebert DPM [address], [place], [address], [employer] 01/16/2025 16:30:10 01/23/2025 text/html . Patient is a 29-year-old female she presents to the office for follow-up on 5th metatarsal open reduction internal fixation. Patient is doing well she denies any pain she has been weight-bearing in normal shoe gear. Patient also has some minor wound dehiscence which is almost 95% healed. Patient denies any signs of infection. Patient denies any other complaints. Ebenezer Hebert DPM [address], [place], [address], [employer] 01/24/2025 10:22:38 OBGyn Episode No OBEpisode recorded.
[2025-01-30 12:34] VITALS: BP 133/89; PULSE 89; RESP 16; O2SAT 100
--- OUTSIDE RECORDS SUMMARY | 2025-01-30 12:35 | XMS_ITS | Clinical Summary ---
Author Organization [facility] Address [address] [place] [address] Care Team Providers Care Lending Consultant Name Role Phone Koby Howard MD Primary [...] ABORH O Positive 06/23/2022 IDCOOMB Negative 06/23/2022 [id number] Nonreactive 06/23/2022 LABRPR Nonreactive 06/23/2022 RUBELIGG Reactive [...] out provided @ 36wks Girl, formula feeding, [facility] Teaching: [x] 1st visit [x] 28-30 week [x] 36 week Initial BMI >50 (gestational weight goal <15lbs) 1st visit: [] Early HgbA1c and TSH [] Order specialized anatomy for 20-22wks [] 1mg folic acid and ASA @ 12wks [] JAYMIE eval (referral if indicated) [] Nutritional Consult Referral ([facility]) [] Discuss risks and limitations of cfDNA [...] ABORH O Positive 05/02/2020 IDCOOMB Negative 05/02/2020 [id number] Nonreactive 05/02/2020 LABRPR Nonreactive 05/02/2020 RUBELIGG Reactive [...] out provided @ 36wks Girl, formula feeding, [facility] peds Teaching: [x] 1st [...] week 12/16/2022 How often do you attend [facility] or rastafarian services? Never 12/16/2022 Do you belong to any clubs o r organizations such as adventism groups, unions, [employer] or athletic groups, or school groups? No [...] place to sleep or slept in a prison (including now)? No 12/16/2022 [place] Depression Scale Answer Date Recorded [place] Depression Scale Total 8 01/07/2023 The thought [...] on file Legal Sex Female 1:45 PM STORYBOARD ARTIST Gender Identity Not on file Sexual Orientation [...] Failure to Progress in Second Stage Delivery Location:[facility] Main C ampus ([facility] L AND D PROCEDURE) 2020 Term 38w 4d 0h 41m 0h 31m/0h 10m 3.52 kg (7 lb 12.2 oz) F Vag-Sp ont Epidur al N Livin g 6 7 VOLOS KI,GI Mathew Wang MD Complications:None Delivery Location:[facility] Main C ampus ([facility] 58LD) 2022 Term 38w 4d 0h 11m 0h 11m 4.08 kg (8 lb 15.9 oz) F Vagina l Epidur al N Livin g 8 9 VOLOS KI,GI Higinio Moulton MD Complications:None Delivery Location:[facility] Main C ampus ([facility] 58LD) Comments - name TBA [id number]-[id number]-38.3 today. She is being sent from clinic [...] ordered to be pulled at 12 hours [id number]-[id number]-CS-periurethral Last Filed Vital Signs Vital Sign Reading Time Taken Comments Blood Pressure 107/75 08/10/2023 8:03 AM CDT Pulse 68 02/04/2023 8:30 PM STORYBOARD ARTIST Temperature 36.3 C (97.3 F) 02/04/2023 8:31 PM STORYBOARD ARTIST Respiratory Rate 18 02/04/2023 8:30 PM STORYBOARD ARTIST Oxygen Saturation 100% 02/04/2023 8:30 PM STORYBOARD ARTIST Inhaled Oxygen Concentration - - Weight 139.2 [...] HIGH RISK HPV Routine 05/26/2022 3:11 PM STORYBOARD ARTIST Supervision of other normal , antepartum from Last 3 Months or Most Recently Relevant to Health Maintenance Results * Hepatitis C antibody (06/23/2022 3:34 PM CDT) Hep C Ab Nonreactive Nonreactive [facility] Comment:Antibodies to HCV no t detected. Does NOT exclude the possibility of recent exposure to HCV. Current interpretive data was last revised on 21 Blood 06/23/2022 3:34 PM CDT 06/23/2022 4:44 PM CDT us Светлана Charu Hogan MD LAB MICROBIOLO GY - GENERAL ORDERABLES Final Result [facility] Department [place] [address] * Pap with reflex to High Risk HPV (05/26/2022 3:11 PM STORYBOARD ARTIST) CLINICAL INFORMATION: NO ABNL [facility] LMP EARLY Ques t [facility] Previous Pap EARLY PARGNANCY Q uest [facility] Prev. Bx NONE GIVEN [facility] SOURCE: Cervix, Endocervix [facility] Pap, specimen adequacy Satisfactory for evaluation. Endocervical/galvez sformation zone component present. [facility] HPV interp Negative for intraepithelial lesion or malignancy. [facility] COMMENTS This Pap test has been evaluated with computer assisted technology. [facility] Driver Sales LMT, CT(ASCP) CT screening location: [place] [address] [place] [address] [facility] Comment [facility] Comment: EXPLANATORY NOTE: The Pap is a [...] clinical information. Thin prep 05/26/2022 3:11 PM STORYBOARD ARTIST 05/27/2022 4:08 AM STORYBOARD ARTIST us Светлана Hogan MD LAB CYTOLOGY O RDERABLES Final Result [facility] [address] [place] [address] from Last 3 Months or Most Recently Relevant to Health Maintenance Insurance [facility] O IDPA IDPA Advance Directives For more information, please contact: [phone] * Full Code (Latest Code Status on [...] 10:23 AM 11/19/2019 1:14 AM Care Teams Lending Consultant Relationship Specialty Start Date End Date Koby Howard MD PCP - General Internal Medicine 05/04/18
[2025-01-30] MEDS: diphenhydrAMINE HCl CAP 25 MG CAPSULE PO (13:30)
[2025-01-30] MEDS: KETOROLAC 30 MG/ML VIAL (*BKC) IM (13:30)
[2025-01-30] MEDS: PROCHLORPERAZINE MALEATE 5 MG TABLET 10 MG PO (14:13)
--- NOTE | 2025-01-30 15:14 | ED_ITS ---
HPI - General Adult General Chief complaint: Headache Stated complaint: migraine since 01/28/25 Time Seen by Provider: 01/30/25 12:02 History of Present Illness HPI narrative: 29-year-old female presenting with complaints of headache. Patient states the headache started on Thursday, went away, then came back later that night. She states the pain has worsened since then. Patient reports the pain is worse at the top of her head and is exacerbated by movement. She reports mild nausea but denies vomiting, fevers/chills, weakness, dizziness/visiting changes, numbness/tingling, or sensitivity to light/sound. Related Data Allergies Allergy/AdvReac Type Severity Reaction Status Date / Time codeine Allergy Unknown Other Verified 01/30/25 12:37 amoxicillin AdvReac Mild Nausea Verified 01/30/25 12:37 Review of Systems Review of Systems: All systems reviewed & are unremarkable except as noted in HPI and below Exam Narrative: GENERAL: Well-appearing, well-nourished, and in no acute distress. HEAD: Normocephalic, atraumatic. EYES: PERRLA and EOMI. ENT: Nares clear, no rhinorrhea or epistaxis. Mucous membranes moist. Oropharynx without tonsillar hypertrophy exudate or other lesions. Bilateral TMs pearly jane non-bulging NECK: Supple. No adenopathy or masses. No carotid bruits or JVD CHEST: Clear to auscultation. No respiratory distress. No wheezes rales or rhonchi HEART: Regular rate and rhythm. No murmur heard. Normal peripheral pulses. ABDOMEN: Soft, nontender, nondistended, normal active bowel sounds. EXTREMITIES: Normal range of motion. No edema. SKIN: Warm, dry, no rash. NEURO: No focal deficits. Alert and oriented x3. PSYCH: Normal mood and affect Course Vital Signs Vital signs: Vital Signs Temperature 97.6 F 01/30/25 09:52 Pulse Rate 91 01/30/25 09:52 Respiratory Rate 16 01/30/25 09:52 Blood Pressure 150/92 H 01/30/25 09:52 Pulse Oximetry 100 01/30/25 09:52 Oxygen Delivery Room Air 01/30/25 09:52 Temperature 97.6 F 01/30/25 09:52 Pulse Rate 89 01/30/25 12:34 Respiratory Rate 16 01/30/25 12:34 Blood Pressure 133/89 01/30/25 12:34 Pulse Oximetry 100 01/30/25 12:34 Oxygen Delivery Room Air 01/30/25 09:52 Medical Decision Making MDM Narrative Medical decision making narrative: 29-year-old female presenting with complaints of headache. Patient states the headache started on Thursday, went away, then came back later that night. She states the pain has worsened since then. Patient reports the pain is worse at the top of her head and is exacerbated by movement. She reports mild nausea but denies vomiting, fevers/chills, weakness, dizziness/visiting changes, numbness/tingling, or sensitivity to light/sound. Patient's headache was not sudden in onset or maximal in severity. There are no focal neurological deficits on exam. Subarachnoid hemorrhage is felt to be unlikely at this time. There is no history of fever and neck is supple on evaluation without meningeal signs. Meningitis is felt to be unlikely. No traumatic history or signs of trauma on evaluation. No vision changes or ocular signs of acute glaucoma. Patient feeling much better after migraine cocktail. Patient's headache is felt to be benign cephalgia and reasonable for further outpatient management. Advised patient to follow with PCP for further evaluation. Given reasons to return. Medical Records Medical records reviewed: Yes I reviewed the external patient's medical records. Vital Signs Vital Signs: Vital Signs Temperature 97.6 F 01/30/25 09:52 Pulse Rate 91 01/30/25 09:52 Respiratory Rate 16 01/30/25 09:52 Blood Pressure 150/92 H 01/30/25 09:52 Pulse Oximetry 100 01/30/25 09:52 Oxygen Delivery Room Air 01/30/25 09:52 Temperature 97.6 F 01/30/25 09:52 Pulse Rate 89 01/30/25 12:34 Respiratory Rate 16 01/30/25 12:34 Blood Pressure 133/89 01/30/25 12:34 Pulse Oximetry 100 01/30/25 12:34 Oxygen Delivery Room Air 01/30/25 09:52 Discharge Plan Discharge Clinical Impression: Migraine Patient Disposition: Home Condition: Improved Instructions: Migraine Headache (ED) Additional Instructions: Return to the emergency department if you experience fever, chest pain, shortness of breath, abdominal pain with nausea and vomiting, weakness, numbness/tingling, or any other symptoms that are concerning to you. Take medications as prescribed. Follow up with primary care doctor Patient Language: Portuguese Prescriptions: New ondansetron 4 mg tablet,disintegrating 4 mg PO Q8H PRN (Reason: nausea and vomiting) Qty: 20 0RF No Action ondansetron 4 mg tablet,disintegrating 4 mg PO Q8H PRN (Reason: nausea and vomiting) Qty: 10 0RF cephalexin 500 mg tablet 500 mg PO Q8H 7 Days Qty: 21 0RF Follow-up/Referrals: Anita,Koby Petersen MD [Primary Care Provider, Unknown]
== END 2025-01-30 15:35 | disposition home or self-care (01) ==
PROVIDERS: PCP Internal Medicine
DX: G43.909 Migraine, unspecified, not intractable, without status migrainosus (principal)
CPT/HCPCS: 96372; 99283; A9270; J1885